=== PATIENT | male | born 1955 | race Caucasian/White ===

== ENCOUNTER 2017-10-22 09:24 | Outpatient (CLI) | payer MEDICARE, SELFPAY ==
[2017-10-22 11:34] LABS: CREATININE 0.91 mg/dL (0.70-1.30); Potassium 4.2 mmol/L (3.5-5.1)
[2017-10-22 12:59] LABS: Hemoglobin A1C 5.9 % (4.5-6.2)
== END 2017-10-22 09:44 ==
LOC: LBO 09:24 → LOS 10:33
PROVIDERS: PCP Family Medicine; Visit Provider Family Medicine
DX: E11.9 Type 2 diabetes mellitus without complications (principal); I10 Essential (primary) hypertension
CPT/HCPCS: 36415; 82565; 83036; 84132

== ENCOUNTER 2018-03-09 10:28 | Emergency (ER) | payer MEDICARE, SELFPAY ==
[2018-03-09 10:34] VITALS: BP 119/64; PULSE 61; RESP 14; TEMP 37.2; O2SAT 95
--- NOTE | 2018-03-09 11:49 | ED.GENADUL_ITS ---
Discharge Plan Disposition Patient Disposition: HOME Condition: Stable Discharge Details Chief Complaint: Sorethroat Clinical Impression: Strep pharyngitis Primary Care Provider: Raoul Akhtar ED Provider: Kimberlee Holliday Home Meds and New Rx's Prescriptions: New azithromycin [Zithromax] 500 mg tablet 500 mg PO DAILY 5 Days Qty: 5 RF: 0 Continued furosemide 20 mg tablet 20 mg PO QAM RF: 0 lorazepam 0.5 mg tablet 0.5 mg PO HS PRN RF: 0 atorvastatin 80 mg tablet 80 mg PO HS RF: 0 multivitamin [Daily Multi-Vitamin] 1 EACH tablet 1 ea PO DAILY RF: 0 aspirin [Aspirin Low-Strength] 81 MG tablet,chewable 81 mg PO NIGHTLY RF: 0 BIPAP RF: 0 OneTouch Ultra Test 1 EACH strip 1 ea Miscellaneous DAILY Qty: 100 RF: 4 lancets [OneTouch Delica Lancets] 1 EACH misc 1 ea Miscellaneous DAILY Qty: 100 RF: 4 clopidogrel [Plavix] 75 MG tablet 75 mg PO DAILY Qty: 90 RF: 4 acetaminophen 500 MG tablet 1,000 mg PO Q6H PRN RF: 0 glucosamine sulfate 500 MG capsule 500 mg PO DAILY RF: 0 folic acid 0.4 MG tablet 0.4 mg PO DAILY RF: 0 nystatin (bulk) 1 EACH powder 1 applic Topical BID PRNQty: 1 RF: 5 omega-3 fatty acids-fish oil [Fish Oil] 1 EACH capsule 1 ea PO DAILY RF: 0 nitroglycerin 0.4 MG tablet, sublingual 0.4 mg Sublingual PRN PRNRF: 0 Tumeric 1 cap PO DAILY RF: 0 lactulose 10 GM/15 ML solution 1 ea PO TID RF: 0 No Action spironolactone 100 mg tablet 50 mg PO DAILY RF: 0 lisinopril 10 mg tablet 10 mg PO DAILY Qty: 90 RF: 3 sertraline 100 mg tablet 150 mg PO DAILY Qty: 135 RF: 3 Discharge Instructions Instructions: Pharyngitis (ED) Additional Instructions: Take the antibiotics until finished. Drink plenty of fluids and get plenty of rest. Follow-up with your primary care doctor and cardiothoracic surgeon for reevaluation. Return immediately to the emergency department any worsening or new concerning symptoms. Discharge Data Discharge Date/Time-TO BE ENTERED AT DEPARTURE: 03/09/18 12:10 Discharge Physician: Kimberlee Holliday Medical Decision Making 63-year-old male with a history of aortic stenosis status post TAVR 1 year ago who presents with sore throat for the past 3 days. Also complains of cough with yellow sputum. Denies any known fever. Patient appears nontoxic and in no acute distress. Vitals within normal limits. Afebrile. Posterior pharynx erythematous but no exudates. No lymphadenopathy. Lungs clear to auscultation. No meningeal signs. No focal deficits. Rapid strep positive. Upon review of literature of valve replacement, plan for treatment is same with antibiotic treatment. Patient is allergic to penicillin. Will treat with zithromax. Patient states he can go directly to the pharmacy. Will give a prescription for Zithromax. Patient instructed to follow-up with his primary care doctor and his cardiothoracic surgeon at [facility] for reevaluation. He is instructed to return here at any time if worse. HPI General Mode of arrival: ambulatory . Date/Time Provider Initiated Documentation: 03/09/18 10:56 . Limitations to Documentation: no limitations . Information obtained by: patient . HPI Narrative: Patient is a 63-year-old male with a history of aortic stenosis status post TAVR 1 year ago at [facility] who presents with sore throat for the past 3 days. He also complains of productive cough with yellow sputum. He complains of intermittent chills and headache but denies any known fever. He denies ear pain, neck pain, chest pain, shortness of breath, abdominal pain. Related Data Home Medications Medication Instructions Recorded Confirmed aspirin [Aspirin Low-Strength] 81 mg PO NIGHTLY tab-cap 05/13/12 03/10/18 multivitamin [Daily Multi-Vitamin] 1 ea PO DAILY 05/13/12 03/10/18 OneTouch Ultra Test #100 strip 01/24/15 03/10/18 lancets [OneTouch Delica Lancets] #100 ea 01/24/15 03/10/18 omega-3 fatty acids-fish oil [Fish 1 ea PO DAILY 08/07/15 03/10/18 Oil] nitroglycerin 0.4 mg SUBLINGUAL PRN PRN 11/03/15 03/10/18 clopidogrel [Plavix] 75 mg PO DAILY #90 tab-cap 01/22/16 03/10/18 acetaminophen 1,000 mg PO Q6H PRN tab-cap 02/29/16 03/10/18 glucosamine sulfate 500 mg PO DAILY 02/29/16 03/10/18 Tumeric 1 cap PO DAILY 06/12/16 03/10/18 folic acid 0.4 mg PO DAILY tab-cap 11/08/16 03/10/18 lactulose 1 ea PO TID 11/09/16 03/10/18 nystatin (bulk) 1 applic TOPICAL BID PRN #1 bottle 08/31/17 03/10/18 atorvastatin 80 mg tablet 80 mg PO HS tab 10/18/17 03/10/18 lorazepam 0.5 mg tablet 0.5 mg PO HS PRN tab 10/18/17 03/10/18 furosemide 20 mg tablet 20 mg PO QAM tab 10/22/17 03/10/18 spironolactone 100 mg tablet 50 mg PO DAILY 10/22/17 03/10/18 azithromycin [Zithromax] 500 mg PO DAILY 5 Days #5 tab 03/09/18 03/10/18 lisinopril 10 mg tablet 10 mg PO DAILY #90 tab 03/10/18 03/10/18 sertraline 100 mg tablet 150 mg PO DAILY #135 tab 03/10/18 03/10/18 Previous Rx's Medication Instructions Recorded azithromycin [Zithromax] 500 mg PO DAILY 5 Days #5 tab 03/09/18 lisinopril 10 mg tablet 10 mg PO DAILY #90 tab 03/10/18 sertraline 100 mg tablet 150 mg PO DAILY #135 tab 03/10/18 Allergies Allergy/AdvReac Type Severity Reaction Status Date / Time Iodinated Contrast- Oral and Allergy Severe Swelling/Ed Unverified 03/10/18 08:08 IV Dye tiffanie shellfish derived Allergy Severe Swelling/Ed Unverified 03/10/18 08:08 tiffanie Penicillins Allergy Intermediate Hives Unverified 03/10/18 08:08 gabapentin AdvReac Mild URINARY SX Unverified 03/10/18 08:08 General Stated Complaint: Sorethroat SARAH: 4 Review of Systems Review of Systems All systems reviewed & are unremarkable except as noted in HPI and below Constitutional Reports as per HPI, Reports chills, Denies fever(s) and Reports headache(s) Eyes Denies blurry vision ENT Denies dizziness, Reports headache(s), Reports sore throat and Denies throat swelling Cardiovascular Denies chest pain and Denies dyspnea Respiratory Reports chest congestion, Reports cough and Denies dyspnea Gastrointestinal Denies abdominal pain, Denies diarrhea and Denies vomiting Genitourinary Denies hematuria and Denies dysuria Musculoskeletal Denies back pain and Denies numbness Integumentary/Breasts Denies lesions and Denies rash Neurologic Denies dizziness, Reports headache(s), Denies focal weakness and Denies numbness Allergic/Immunologic Denies throat swelling [facility] Medical History History of encephalitis (Acute) Hyperlipemia (Acute) NAFLD (nonalcoholic fatty liver disease) (Acute) Aortic stenosis (Chronic) Depression (Chronic) Diabetes (Chronic) HTN (hypertension) (Chronic) Myocardial infarction (Chronic) Obesity (Chronic) Obstructive sleep apnea (Chronic) Osteoarthritis (Chronic) Seizure disorder (Chronic) Surgical History History of carpal tunnel release (Acute) S/P TAVR (transcatheter aortic valve replacement) (Acute) History of coronary artery stent placement (Chronic) Social History Smoking/Tobacco Use Status: Never alcohol intake: current alcohol intake frequency: a few times a month substance use type: does not use Exam Const General: cooperative, healthy appearing and no acute distress HENMT Head: normal to inspection Ears: hearing grossly normal bilaterally and TM's normal bilaterally General nose exam: external nose normal Face and sinus: normal facial exam and sinuses nontender Mouth: oral mucosae normal Teeth and gingiva: dentition normal Throat: no peritonsillar masses (no tonsillar abscess) and other (Posterior pharyngeal erythema but without exudates. Uvula midline. ) Eyes General: appearance normal, both eyes and all related structures Pupils: PERRL EOM: EOM intact bilaterally Neck Neck: normal visual inspection and No submandibular swelling Lymphatic: no lymphadenopathy noted Chest Chest: normal inspection of the chest and no tenderness Resp Effort & Inspection: normal respiratory effort and able to speak in complete sentences Auscultation: clear to auscultation bilaterally Cardio Rate: regular rate Rhythm: regular rhythm Heart Sounds: murmur systolic (vibrating) GI Inspection: normal to inspection Palpation: soft, not firm, not rigid and nontender Auscultation: normal bowel sounds Male General Exam: Yes normal external exam Skin General skin exam: no rashes or lesions noted Neuro General: alert, awake and oriented x3 Cognition: normal cognition Speech: speech normal Motor: muscle tone normal throughout Sensory Exam: no sensory deficits noted Extrem General: normal to inspection, full ROM and no edema Psych Appearance: grossly normal Mental Status: mental status grossly normal Speech and Movement: speech and movement normal Affect: normal affect Course Vital Signs Temperature 99.0 F 03/09/18 10:34 Pulse 61 03/09/18 10:34 Respiratory Rate 14 03/09/18 10:34 Blood Pressure 119/64 03/09/18 10:34 Pulse Oximetry 95 03/09/18 10:34 Temperature 99.0 F 03/09/18 10:34 Temperature Source Temporal Artery Scan 03/09/18 10:34 Pulse 61 03/09/18 10:34 Respiratory Rate 14 03/09/18 10:34 Respiratory Effort Non-Labored 03/09/18 10:52 Blood Pressure 119/64 03/09/18 10:34 Blood Pressure Position Sitting 03/09/18 10:34 Pulse Oximetry 95 03/09/18 10:34 Oxygen Delivery Method Room Air 03/09/18 10:34 Oxygen Flow Rate 0 03/09/18 10:34 Pain Level 3 03/09/18 10:34 Lab/Test Results Lab/Test Results: POC Strep Test-HAROLDO(Rapid) Start: 03/09/18 11:13 Freq: Status: Active Protocol: Document 03/09/18 11:14 PD (Rec: 03/09/18 11:14 PD [id number]) Strep test-HAROLDO(Rapid)-POC POC-Strep test-HAROLDO (Rapid) Positive POC-Strep test-HAROLDO (Rapid) Positive
[2018-03-09 12:06] VITALS: BP 126/57; PULSE 57; RESP 18; TEMP 37; O2SAT 94
== END 2018-03-09 12:10 | disposition home or self-care (01) ==
PROVIDERS: Emergency Provider Physician Assistant; PCP Family Medicine
DX: J02.0 Streptococcal pharyngitis (principal); E11.9 Type 2 diabetes mellitus without complications; I10 Essential (primary) hypertension
CPT/HCPCS: 87880; 99283

== ENCOUNTER 2018-03-10 08:34 | Outpatient (CLI) | payer MEDICARE, SELFPAY ==
[2018-03-10 11:22] LABS: Abs Immature Grans 0.02 k/cumm (0.0-0.09); Absolute Eosinophil Count 0.09 k/cumm (0.0-0.7); Absolute Lymphocyte Count 0.61 k/cumm (1.2-3.4); Absolute Monocyte Count 0.65 k/cumm (0.11-0.7); Absolute Neutrophil Count 3.35 k/cumm (1.2-6.7); Eosinophils % 1.9; HCT 38.5 % (40.0-50.0); HGB 12.6 g/dL (13.5-17.5); Immature Grans % 0.4; Lymphocytes % 12.9; Mean Corp. HGB Concentration 32.7 g/dL (32.0-36.0); Mean Corpuscular Hemoglobin 29.8 pg (27.0-33.0); Mean Platelet Volume 11.9 fL (8.0-11.0); Monocytes % 13.8; RBC 4.23 m/cumm (4.50-6.00); RBC Distribution Width 15.3 % (11.8-14.1); White Blood Cell Count 4.72 k/cumm (4.4-10.8)
[2018-03-10 11:37] LABS: C-Reactive Protein 3.46 mg/dL (0.0-0.3)
[2018-03-10 11:41] LABS: Platelet Count 38 x1000/uL (130-400)
== END 2018-03-10 08:54 ==
PROVIDERS: PCP Family Medicine; Visit Provider Family Medicine
DX: I33.0 Acute and subacute infective endocarditis (principal)
CPT/HCPCS: 36415; 85025; 86140

== ENCOUNTER 2018-04-20 07:10 | Emergency (ER) | payer MEDICARE, SELFPAY ==
[2018-04-20 07:16] VITALS: BP 111/85; PULSE 51; RESP 16; TEMP 36.6; O2SAT 98
--- NOTE | 2018-04-20 07:59 | W.ED.GENAD ---
Discharge Plan Disposition Patient Disposition: OTHER Condition: Stable Discharge Details Chief Complaint: Cellulitis Clinical Impression: Thrombosed external hemorrhoid, Left before treatment completed Primary Care Provider: Raoul Akhtar ED Provider: Kimberlee Holliday Home Meds and New Rx's Prescriptions: Continued furosemide 20 mg tablet 20 mg PO QAM RF: 0 spironolactone 100 mg tablet 50 mg PO DAILY RF: 0 lorazepam 0.5 mg tablet 0.5 mg PO HS PRN RF: 0 atorvastatin 80 mg tablet 80 mg PO HS RF: 0 lisinopril 10 mg tablet 10 mg PO DAILY Qty: 90 RF: 3 multivitamin [Daily Multi-Vitamin] 1 EACH tablet 1 ea PO DAILY RF: 0 aspirin [Aspirin Low-Strength] 81 MG tablet,chewable 81 mg PO NIGHTLY RF: 0 BIPAP RF: 0 OneTouch Ultra Test 1 EACH strip 1 ea Miscellaneous DAILY Qty: 100 RF: 4 lancets [OneTouch Delica Lancets] 1 EACH misc 1 ea Miscellaneous DAILY Qty: 100 RF: 4 clopidogrel [Plavix] 75 MG tablet 75 mg PO DAILY Qty: 90 RF: 4 acetaminophen 500 MG tablet 1,000 mg PO Q6H PRN RF: 0 glucosamine sulfate 500 MG capsule 500 mg PO DAILY RF: 0 folic acid 0.4 MG tablet 0.4 mg PO DAILY RF: 0 nystatin (bulk) 1 EACH powder 1 applic Topical BID PRNQty: 1 RF: 5 sertraline 100 mg tablet 150 mg PO DAILY Qty: 135 RF: 3 omega-3 fatty acids-fish oil [Fish Oil] 1 EACH capsule 1 ea PO DAILY RF: 0 nitroglycerin 0.4 MG tablet, sublingual 0.4 mg Sublingual PRN PRNRF: 0 Tumeric 1 cap PO DAILY RF: 0 lactulose 10 GM/15 ML solution 1 ea PO TID RF: 0 Discharge Data Discharge Date/Time-TO BE ENTERED AT DEPARTURE: 04/20/18 08:24 Medical Decision Making 63-year-old male with a history of seizure, obesity, UT, DM, NAFLD, coronary stent, TAVR who presents w/ right several months, worse over the past few days with straining and constipation. Denies fever, nausea, vomiting, abdominal pain, bloody stools or change in appetite. Vitals within normal limits. Afebrile. Patient appears nontoxic. Abdomen is soft and nontender. He has 1 thrombosed hemorrhoid on exam. Patient is requesting hemorrhoidectomy. Will call surgery for recommendations. Likely will send home with colace, lidocaine jelly, and refer for surgical evaluation. 0830 --patient walked out of room and left before treatment complete stating You're not a real doctor, you're not educated, what good are you?, why dont' you learn to do this {procedure of hemorrhoid excision} so you can be a real doctor instead of pushing me off to someone else to do your work. I discussed with patient that I have called surgery to arrange for a follow-up appointment with him and can send him home with Colace and lidocaine jelly. I discussed that I do not perform hemorrhoid excisions in the emergency department, and even more so considering patient's history of TAVR, diabetes, liver disease, UT, cardiac stent, this procedure would be best performed under the supervision of a general surgeon. Pt stated someone will hear about this and left. Case was discussed with nursing curing supervisor and care/risk management. Case was also discussed with surgery Dr. Willson who was given patient's information to contact him to arrange for a follow-up appointment. HPI General Mode of arrival: ambulatory. Date/Time Provider Initiated Documentation: 04/20/18 07:12. Limitations to Documentation: no limitations. Information obtained by: patient. HPI Narrative: Patient is a 63-year-old male with a history of diabetes, seizures, NAFLD, UT, cardiac stent, TAVR who presents to the ED with a complaint of hemorrhoids for the past few months, worse over the past couple days. He states he has been straining with his bowel movements lately due to constipation. Patient states he cannot drink much water due to his chronic liver disease. States he has been using a liquid stool softener 3 times daily for the past 2 years. He denies any other stool softeners. He states he has been using baths without relief. He admits to rectal pain but denies any fever, nausea, vomiting, abdominal pain or bloody stools. Related Data Home Medications Medication Instructions Recorded Confirmed aspirin [Aspirin Low-Strength] 81 mg PO NIGHTLY tab-cap 05/13/12 04/20/18 multivitamin [Daily Multi-Vitamin] 1 ea PO DAILY 05/13/12 04/20/18 OneTouch Ultra Test #100 strip 01/24/15 04/20/18 lancets [OneTouch Delica Lancets] #100 ea 01/24/15 04/20/18 omega-3 fatty acids-fish oil [Fish 1 ea PO DAILY 08/07/15 04/20/18 Oil] nitroglycerin 0.4 mg SUBLINGUAL PRN PRN 11/03/15 04/20/18 clopidogrel [Plavix] 75 mg PO DAILY #90 tab-cap 01/22/16 04/20/18 acetaminophen 1,000 mg PO Q6H PRN tab-cap 02/29/16 04/20/18 glucosamine sulfate 500 mg PO DAILY 02/29/16 04/20/18 Tumeric 1 cap PO DAILY 06/12/16 04/20/18 folic acid 0.4 mg PO DAILY tab-cap 11/08/16 04/20/18 lactulose 1 ea PO TID 11/09/16 04/20/18 nystatin (bulk) 1 applic TOPICAL BID PRN #1 bottle 08/31/17 04/20/18 atorvastatin 80 mg tablet 80 mg PO HS tab 10/18/17 04/20/18 lorazepam 0.5 mg tablet 0.5 mg PO HS PRN tab 10/18/17 04/20/18 furosemide 20 mg tablet 20 mg PO QAM tab 10/22/17 04/20/18 spironolactone 100 mg tablet 50 mg PO DAILY 10/22/17 04/20/18 lisinopril 10 mg tablet 10 mg PO DAILY #90 tab 03/10/18 04/20/18 sertraline 100 mg tablet 150 mg PO DAILY #135 tab 03/10/18 04/20/18 Previous Rx's Medication Instructions Recorded lisinopril 10 mg tablet 10 mg PO DAILY #90 tab 03/10/18 sertraline 100 mg tablet 150 mg PO DAILY #135 tab 03/10/18 Allergies Allergy/AdvReac Type Severity Reaction Status Date / Time Iodinated Contrast- Oral and Allergy Severe Swelling/Ed Verified 04/20/18 15:21 IV Dye tiffanie shellfish derived Allergy Severe Swelling/Ed Verified 04/20/18 15:21 tiffanie Penicillins Allergy Intermediate Hives Verified 04/20/18 15:21 gabapentin AdvReac Mild URINARY SX Verified 04/20/18 15:21 General Stated Complaint: Cellulitis SARAH: 4 Review of Systems Review of Systems All systems reviewed & are unremarkable except as noted in HPI and below Constitutional Reports as per HPI, Denies chills and Denies fever(s) Eyes Denies blurry vision ENT Denies dizziness, Denies sore throat and Denies throat swelling Cardiovascular Denies chest pain and Denies dyspnea Respiratory Denies cough and Denies dyspnea Gastrointestinal Denies abdominal pain, Denies diarrhea, Denies vomiting and Reports other (rectal pain, hemorrhoids) Genitourinary Denies hematuria and Denies dysuria Musculoskeletal Denies back pain and Denies numbness Integumentary/Breasts Denies lesions and Denies rash Neurologic Denies dizziness, Denies focal weakness and Denies numbness Allergic/Immunologic Denies throat swelling [facility] Social History Smoking and Tabacco status: Never alcohol intake: current alcohol intake frequency: a few times a month substance use type: does not use Exam Const General: cooperative, healthy appearing and no acute distress HENMT Head: normal to inspection Face and sinus: normal facial exam Eyes General: appearance normal, both eyes and all related structures EOM: EOM intact bilaterally Neck Neck: normal visual inspection and No submandibular swelling Lymphatic: no lymphadenopathy noted Chest Chest: normal inspection of the chest and no tenderness Resp Effort & Inspection: normal respiratory effort and able to speak in complete sentences Auscultation: clear to auscultation bilaterally Cardio Rate: regular rate Rhythm: regular rhythm GI Inspection: normal to inspection and obesity Palpation: soft, not firm, not rigid and nontender Auscultation: normal bowel sounds Rectal Exam: hemorrhoids (2.5x2.5cm thrombosed external hemorrhoid) Male General Exam: Yes normal external exam Skin General skin exam: no rashes or lesions noted Neuro General: alert, awake and oriented x3 Cognition: normal cognition Speech: speech normal Motor: muscle tone normal throughout Sensory Exam: no sensory deficits noted Extrem General: normal to inspection, full ROM, normal capillary refill, no calf tenderness bilaterally and no edema Psych Appearance: grossly normal Mental Status: mental status grossly normal Speech and Movement: speech and movement normal Affect: normal affect Course Vital Signs Temperature 97.9 F 04/20/18 07:16 Pulse 51 L 04/20/18 07:16 Respiratory Rate 16 04/20/18 07:16 Blood Pressure 111/85 04/20/18 07:16 Pulse Oximetry 98 04/20/18 07:16 Temperature 97.9 F 04/20/18 07:16 Temperature Source Temporal Artery Scan 04/20/18 07:16 Pulse 51 L 04/20/18 07:16 Respiratory Rate 16 04/20/18 07:16 Respiratory Effort Non-Labored 04/20/18 07:20 Blood Pressure 111/85 04/20/18 07:16 Blood Pressure Position Sitting 04/20/18 07:16 Pulse Oximetry 98 04/20/18 07:16 Oxygen Delivery Method Room Air 04/20/18 07:16 Oxygen Flow Rate 0 04/20/18 07:16 Pain Level 10 04/20/18 07:16
--- NOTE | 2018-04-20 08:04 | ED.GENADUL_ITS ---
Discharge Plan Disposition Patient Disposition: OTHER Condition: Stable Discharge Details Chief Complaint: Cellulitis Clinical Impression: Thrombosed external hemorrhoid, Left before treatment completed Primary Care Provider: Raoul Akhtar ED Provider: Kimberlee Holliday Home Meds and New Rx's Prescriptions: Continued furosemide 20 mg tablet 20 mg PO QAM RF: 0 spironolactone 100 mg tablet 50 mg PO DAILY RF: 0 lorazepam 0.5 mg tablet 0.5 mg PO HS PRN RF: 0 atorvastatin 80 mg tablet 80 mg PO HS RF: 0 lisinopril 10 mg tablet 10 mg PO DAILY Qty: 90 RF: 3 multivitamin [Daily Multi-Vitamin] 1 EACH tablet 1 ea PO DAILY RF: 0 aspirin [Aspirin Low-Strength] 81 MG tablet,chewable 81 mg PO NIGHTLY RF: 0 BIPAP RF: 0 OneTouch Ultra Test 1 EACH strip 1 ea Miscellaneous DAILY Qty: 100 RF: 4 lancets [OneTouch Delica Lancets] 1 EACH misc 1 ea Miscellaneous DAILY Qty: 100 RF: 4 clopidogrel [Plavix] 75 MG tablet 75 mg PO DAILY Qty: 90 RF: 4 acetaminophen 500 MG tablet 1,000 mg PO Q6H PRN RF: 0 glucosamine sulfate 500 MG capsule 500 mg PO DAILY RF: 0 folic acid 0.4 MG tablet 0.4 mg PO DAILY RF: 0 nystatin (bulk) 1 EACH powder 1 applic Topical BID PRNQty: 1 RF: 5 sertraline 100 mg tablet 150 mg PO DAILY Qty: 135 RF: 3 omega-3 fatty acids-fish oil [Fish Oil] 1 EACH capsule 1 ea PO DAILY RF: 0 nitroglycerin 0.4 MG tablet, sublingual 0.4 mg Sublingual PRN PRNRF: 0 Tumeric 1 cap PO DAILY RF: 0 lactulose 10 GM/15 ML solution 1 ea PO TID RF: 0 Discharge Data Discharge Date/Time-TO BE ENTERED AT DEPARTURE: 04/20/18 08:24 Medical Decision Making 63-year-old male with a history of seizure, obesity, OH, DM, NAFLD, coronary stent, TAVR who presents w/ right several months, worse over the past few days with straining and constipation. Denies fever, nausea, vomiting, abdominal pain, bloody stools or change in appetite. Vitals within normal limits. Afebrile. Patient appears nontoxic. Abdomen is soft and nontender. He has 1 thrombosed hemorrhoid on exam. Patient is requesting hemorrhoidectomy. Will call surgery for recommendations. Likely will send home with colace, lidocaine jelly, and refer for surgical evaluation. 0830 --patient walked out of room and left before treatment complete stating You're not a real doctor, you're not educated, what good are you?, why dont' you learn to do this {procedure of hemorrhoid excision} so you can be a real doctor instead of pushing me off to someone else to do your work. I discussed with patient that I have called surgery to arrange for a follow-up appointment with him and can send him home with Colace and lidocaine jelly. I discussed that I do not perform hemorrhoid excisions in the emergency department, and even more so considering patient's history of TAVR, diabetes, liver disease, OH, cardiac stent, this procedure would be best performed under the supervision of a general surgeon. Pt stated someone will hear about this and left. Case was discussed with nursing pattern grader supervisor and care/risk management. Case was also discussed with surgery Dr. Willson who was given patient's information to contact him to arrange for a follow-up appointment. HPI General Mode of arrival: ambulatory . Date/Time Provider Initiated Documentation: 04/20/18 07:12 . Limitations to Documentation: no limitations . Information obtained by: patient . HPI Narrative: Patient is a 63-year-old male with a history of diabetes, seizures, NAFLD, OH, cardiac stent, TAVR who presents to the ED with a complaint of hemorrhoids for the past few months, worse over the past couple days. He states he has been straining with his bowel movements lately due to constipation. Patient states he cannot drink much water due to his chronic liver disease. States he has been using a liquid stool softener 3 times daily for the past 2 years. He denies any other stool softeners. He states he has been using baths without relief. He admits to rectal pain but denies any fever, nausea, vomiting, abdominal pain or bloody stools. Related Data Home Medications Medication Instructions Recorded Confirmed aspirin [Aspirin Low-Strength] 81 mg PO NIGHTLY tab-cap 05/13/12 04/20/18 multivitamin [Daily Multi-Vitamin] 1 ea PO DAILY 05/13/12 04/20/18 OneTouch Ultra Test #100 strip 01/24/15 04/20/18 lancets [OneTouch Delica Lancets] #100 ea 01/24/15 04/20/18 omega-3 fatty acids-fish oil [Fish 1 ea PO DAILY 08/07/15 04/20/18 Oil] nitroglycerin 0.4 mg SUBLINGUAL PRN PRN 11/03/15 04/20/18 clopidogrel [Plavix] 75 mg PO DAILY #90 tab-cap 01/22/16 04/20/18 acetaminophen 1,000 mg PO Q6H PRN tab-cap 02/29/16 04/20/18 glucosamine sulfate 500 mg PO DAILY 02/29/16 04/20/18 Tumeric 1 cap PO DAILY 06/12/16 04/20/18 folic acid 0.4 mg PO DAILY tab-cap 11/08/16 04/20/18 lactulose 1 ea PO TID 11/09/16 04/20/18 nystatin (bulk) 1 applic TOPICAL BID PRN #1 bottle 08/31/17 04/20/18 atorvastatin 80 mg tablet 80 mg PO HS tab 10/18/17 04/20/18 lorazepam 0.5 mg tablet 0.5 mg PO HS PRN tab 10/18/17 04/20/18 furosemide 20 mg tablet 20 mg PO QAM tab 10/22/17 04/20/18 spironolactone 100 mg tablet 50 mg PO DAILY 10/22/17 04/20/18 lisinopril 10 mg tablet 10 mg PO DAILY #90 tab 03/10/18 04/20/18 sertraline 100 mg tablet 150 mg PO DAILY #135 tab 03/10/18 04/20/18 Previous Rx's Medication Instructions Recorded lisinopril 10 mg tablet 10 mg PO DAILY #90 tab 03/10/18 sertraline 100 mg tablet 150 mg PO DAILY #135 tab 03/10/18 Allergies Allergy/AdvReac Type Severity Reaction Status Date / Time Iodinated Contrast- Oral and Allergy Severe Swelling/Ed Verified 04/20/18 15:21 IV Dye tiffanie shellfish derived Allergy Severe Swelling/Ed Verified 04/20/18 15:21 tiffanie Penicillins Allergy Intermediate Hives Verified 04/20/18 15:21 gabapentin AdvReac Mild URINARY SX Verified 04/20/18 15:21 General Stated Complaint: Cellulitis SARAH: 4 Review of Systems Review of Systems All systems reviewed & are unremarkable except as noted in HPI and below Constitutional Reports as per HPI, Denies chills and Denies fever(s) Eyes Denies blurry vision ENT Denies dizziness, Denies sore throat and Denies throat swelling Cardiovascular Denies chest pain and Denies dyspnea Respiratory Denies cough and Denies dyspnea Gastrointestinal Denies abdominal pain, Denies diarrhea, Denies vomiting and Reports other (rectal pain, hemorrhoids) Genitourinary Denies hematuria and Denies dysuria Musculoskeletal Denies back pain and Denies numbness Integumentary/Breasts Denies lesions and Denies rash Neurologic Denies dizziness, Denies focal weakness and Denies numbness Allergic/Immunologic Denies throat swelling [facility] Social History Smoking and Tabacco status: Never alcohol intake: current alcohol intake frequency: a few times a month substance use type: does not use Exam Const General: cooperative, healthy appearing and no acute distress HENMT Head: normal to inspection Face and sinus: normal facial exam Eyes General: appearance normal, both eyes and all related structures EOM: EOM intact bilaterally Neck Neck: normal visual inspection and No submandibular swelling Lymphatic: no lymphadenopathy noted Chest Chest: normal inspection of the chest and no tenderness Resp Effort & Inspection: normal respiratory effort and able to speak in complete sentences Auscultation: clear to auscultation bilaterally Cardio Rate: regular rate Rhythm: regular rhythm GI Inspection: normal to inspection and obesity Palpation: soft, not firm, not rigid and nontender Auscultation: normal bowel sounds Rectal Exam: hemorrhoids (2.5x2.5cm thrombosed external hemorrhoid) Male General Exam: Yes normal external exam Skin General skin exam: no rashes or lesions noted Neuro General: alert, awake and oriented x3 Cognition: normal cognition Speech: speech normal Motor: muscle tone normal throughout Sensory Exam: no sensory deficits noted Extrem General: normal to inspection, full ROM, normal capillary refill, no calf tenderness bilaterally and no edema Psych Appearance: grossly normal Mental Status: mental status grossly normal Speech and Movement: speech and movement normal Affect: normal affect Course Vital Signs Temperature 97.9 F 04/20/18 07:16 Pulse 51 L 04/20/18 07:16 Respiratory Rate 16 04/20/18 07:16 Blood Pressure 111/85 04/20/18 07:16 Pulse Oximetry 98 04/20/18 07:16 Temperature 97.9 F 04/20/18 07:16 Temperature Source Temporal Artery Scan 04/20/18 07:16 Pulse 51 L 04/20/18 07:16 Respiratory Rate 16 04/20/18 07:16 Respiratory Effort Non-Labored 04/20/18 07:20 Blood Pressure 111/85 04/20/18 07:16 Blood Pressure Position Sitting 04/20/18 07:16 Pulse Oximetry 98 04/20/18 07:16 Oxygen Delivery Method Room Air 04/20/18 07:16 Oxygen Flow Rate 0 04/20/18 07:16 Pain Level 10 04/20/18 07:16
--- NOTE | 2018-04-20 14:26 | PDOC.ERCMPRO ---
Care Management Progress Note 04/20-Dr. Holliday requested assistance with a surgical f/u for hemorrhoids. Mir eloped from the ED today as his expectation was the ED provider was going to remove the hemorrhoid. Please see provider note. Referral faxed to [facility] this afternoon. [facility] faxed back that patient has an appt at 3:00 today.
--- NOTE | 2018-04-20 14:27 | CMPROGNOTE_ITS ---
Care Management Progress Note 04/20-Dr. Holliday requested assistance with a surgical f/u for hemorrhoids. Mir eloped from the ED today as his expectation was the ED provider was going to remove the hemorrhoid. Please see provider note. Referral faxed to [facility] this afternoon. [facility] faxed back that patient has an appt at 3:00 today.
== END 2018-04-20 08:24 | disposition other institution (70) ==
LOC: ER 08:17
PROVIDERS: Emergency Provider Physician Assistant; PCP Family Medicine
DX: K64.5 Perianal venous thrombosis (principal); R45.1 Restlessness and agitation; Z95.2 Presence of prosthetic heart valve; E11.9 Type 2 diabetes mellitus without complications; I10 Essential (primary) hypertension; Z53.29 Procedure and treatment not carried out because of patient's decision for other reasons
CPT/HCPCS: 99213; 99283

== ENCOUNTER 2018-04-21 08:05 | Day surgery (SDC) | payer MEDICARE, SELFPAY ==
[2018-04-21 08:52] VITALS: BP 128/67; PULSE 53; RESP 16; TEMP 37; O2SAT 94
[2018-04-21] MEDS: Lactated Ringers 1,000 ML 80 ML IV (09:07)
[2018-04-21] MEDS: Gelatin SPONGE 12-7 MM PKT 1 EACH TP (09:59)
[2018-04-21] MEDS: Bupivacaine LIPOSOME/PF 133 MG/10 ML VIAL IJ (09:59)
[2018-04-21 10:45] VITALS: BP 110/43; PULSE 52; RESP 16; TEMP 36.6; O2SAT 97
--- NOTE | 2018-04-21 10:51 | W.PM.DSUDISC ---
Discharge Plan Disposition Patient Disposition: HOME Condition: Good Discharge Details Reason For Visit: HEMORRHOID Attending Provider: Jenny Cedillo Primary Care Provider: Raoul Akhtar Home Meds and New Rx's Prescriptions: New ibuprofen 800 mg tablet 800 mg PO TID PRN (Reason: pain) Qty: 60 RF: 8 tramadol [Ultram] 50 mg tablet 50 mg PO Q4H PRN (Reason: pain) Qty: 14 RF: 0 dibucaine 1 % ointment 1 applic TP QID Qty: 30 RF: 6 Continued furosemide 20 mg tablet 20 mg PO QAM RF: 0 spironolactone 100 mg tablet 50 mg PO DAILY RF: 0 lorazepam 0.5 mg tablet 0.5 mg PO HS PRN RF: 0 atorvastatin 80 mg tablet 80 mg PO HS RF: 0 lisinopril 10 mg tablet 10 mg PO DAILY Qty: 90 RF: 3 multivitamin [Daily Multi-Vitamin] 1 EACH tablet 1 ea PO DAILY RF: 0 aspirin [Aspirin Low-Strength] 81 MG tablet,chewable 81 mg PO NIGHTLY RF: 0 BIPAP RF: 0 OneTouch Ultra Test 1 EACH strip 1 ea Miscellaneous DAILY Qty: 100 RF: 4 lancets [OneTouch Delica Lancets] 1 EACH misc 1 ea Miscellaneous DAILY Qty: 100 RF: 4 clopidogrel [Plavix] 75 MG tablet 75 mg PO DAILY Qty: 90 RF: 4 acetaminophen 500 MG tablet 1,000 mg PO Q6H PRN RF: 0 glucosamine sulfate 500 MG capsule 500 mg PO DAILY RF: 0 folic acid 0.4 MG tablet 0.4 mg PO DAILY RF: 0 nystatin (bulk) 1 EACH powder 1 applic Topical BID PRNQty: 1 RF: 5 sertraline 100 mg tablet 150 mg PO DAILY Qty: 135 RF: 3 omega-3 fatty acids-fish oil [Fish Oil] 1 EACH capsule 1 ea PO DAILY RF: 0 nitroglycerin 0.4 MG tablet, sublingual 0.4 mg Sublingual PRN PRNRF: 0 Tumeric 1 cap PO DAILY RF: 0 lactulose 10 GM/15 ML solution 1 ea PO TID RF: 0 milk thistle 500 mg Capsule 500 mg PO DAILY RF: 0 sertraline 100 mg Tablet 1.5 tab PO DAILY RF: 0 Discharge Instructions Additional Instructions: Home Care Instructions after Rectal Surgery Pain/muscle spasms are normal after surgery. Use the prescribed pain medications, valium and topical creams. Do not use any other creams unless specifically prescribed for you. It takes oral pain meds an hour to take effect. Do not get behind on your pain meds. You can alternate with NSAID?s (ibuprofen 400-600mg) every 8 hours. Take with food; do not take if you have ulcers or sensitivity to aspirin. Constipation occurs with the use of narcotic pain medications. The first bowel movement after surgery will be painful. Do not let yourself get constipated. Stay on a stool softener while you are on the narcotics. It is recommended that you use a fiber supplement (Metamucil, Citrucel) daily (1 tablespoon in 8 oz of water). If you do not have a bowel movement daily, use Milk of Magnesia or MiraLAX. It is normal to have bleeding or drainage after rectal surgery; especially when you move your bowels. Use a sanitary napkin to collect the discharge. If you are passing large clots or having to change the pad more than every 4 hours, call the clinic or go to the ER. You may experience spasms in the rectal muscles. This is normal after surgery and last for about two weeks. They can become more intense with bowel movements. You can use the valium as a muscle relaxant (do not take at the same time as the pain medications). You can also try sitz bathes (sitting in a bath tub of PLAIN lukewarm water; soap can add to rectal irritation). Or you can try ice packs. You will have to see what works best for you. It is ok to shower. Avoid soap on the surgical area. Use a pillow to sit on. Follow a mild bland diet. Avoid alcohol, spicy food, citrus, and tomatoes. Avoid strenuous activity (running, jogging, and power walking, swimming, weight lifting) for two weeks. No lifting over 5 pounds for 2 [address] if taking pain medications, or cannot turn or twist your body without hesitation. You can return to work when you are no longer taking the pain meds, can sit comfortably for 8 hours or when the weight restrictions are lifted. Urinary retention is common. Sit in a warm tub to try to relax the bladder. If you are unable to urinate after 8 hours, call the office or go to the ER. If you have packing in place, follow the directions for doing the dressing changes. If you have stitches in place, they will fall out in about 7-10 days. They may develop an ?odor?. -Has rectal packing in place. Will pass w/ BM. Activity:: watch for constipation. take magnesium citrate prn Remove Dressings/Wound Care:: 24 hours Shower/Bathe:: 24 hours Diet:: As Tolerated
--- NOTE | 2018-04-21 13:12 | W.PM.OP ---
Date of service: 04/21/18 Time of Service: 13:12 Operative Note DATE OF PROCEDURE: 04/21/18 PRE-OP DIAGNOSIS: thrombosed ext. hem POST-OP DIAGNOSIS: same PROCEDURE: I & D adn excision thrombosed hemorrhoid SURGEON: Jenny Cedillo ANESTHESIA: GETA ESTIMATED BLOOD LOSS: 5 PATHOLOGY: none sent COMPLICATIONS: None Patient was transported to: same day Patient's condition: stable Implants: none Indications: pain Findings: lg amount of clot Procedure Description: dictated
--- NOTE | 2018-04-21 22:14 | ROE_ITS ---
DATE OF PROCEDURE: April 21, 2018 PREOPERATIVE DIAGNOSIS: Thrombosed external hemorrhoid, history of rectal varices and cirrhosis, thrombocytopenia, mechanical heart valve and endocarditis. POSTOPERATIVE DIAGNOSIS: Same. PROCEDURE: Excision of external hemorroid SURGEON: Jenny Cedillo D.O. ANESTHESIA: Local and general. ESTIMATED BLOOD LOSS: 5 cc COMPLICATIONS: The patient tolerated the procedure well without complications. HISTORY: Mr. Arias is a 53-year-old male seen at the request of his PCP regarding a thrombosed hemorrhoid and is here today for excision. The patient has a history of cirrhosis, esophageal varices, and hemorrhoids. He has significant thrombocytopenia with platelets of 38 and is on Plavix so he is being taken to the Operating Room for incision and drainage. He has a hx of endocarditis and is received IV abx preOp. Informed consent was obtained explaining the risks and benefits of the procedure including, but not limited to, bleeding, infection, pneumonia, blood clots, complications from anesthesia, recurrence, bleeding, and other unforetold complications. PROCEDURE: The patient was brought to operative room suite and anesthesia was administered per the Department of Anesthesia. The patient was placed in the left lateral decubitus position. The patient was prepped and draped in the usual sterile fashion solution. A time-out was performed. Twenty cc's of 1% lidocaine and 0.25% Marcaine with epinephrine was used for local anesthetization. The hemorrhoid was then excised sharply. There was a significant amount of clot that was removed. Pressure was held. We were nowhere near the sphincter. The incision was closed with #3-0 running Vicryl. Pressure was held. Long-term Depo lidocaine was placed. Gelfoam was placed into the incision as rectal packing to aid in homeostasis. A sterile dressing was applied. The patient tolerated the procedure well without complication. He was transferred to Recovery in a stable condition. He had no problems with any bleeding. The patient was given instructions in wound care, activity, and warning signs. He was given a prescription for dibucaine ointment and Ultram and he can use ibuprofen to aid in pain control and warm sitz baths. He will follow up in clinic in two weeks. He was given instructions in PostOp rectal care. Thank you for allowing me to participate in the care of this patient. cc: Raoul Akhtar M.D.
== END 2018-04-21 11:25 | disposition home or self-care (01) ==
PROVIDERS: PCP Family Medicine; Visit Provider Surgery
PROC: (CPT 46320; principal; 2018-04-21 09:15)
DX: K64.5 Perianal venous thrombosis (principal); K74.60 Unspecified cirrhosis of liver; D69.6 Thrombocytopenia, unspecified; Z95.2 Presence of prosthetic heart valve; K75.81 Nonalcoholic steatohepatitis (NASH); E11.9 Type 2 diabetes mellitus without complications
CPT/HCPCS: 46320

== ENCOUNTER 2018-04-25 13:31 | Emergency (ER) | payer MEDICARE, SELFPAY ==
[2018-04-25] VITALS (16 sets, daily range): BP systolic 99–129; BP diastolic 45–67; PULSE 46–56; RESP 11–160; TEMP 36.3; O2SAT 95–100
--- NOTE | 2018-04-25 14:15 | W.ED.GENAD ---
Discharge Plan Disposition Patient Disposition: HOME Condition: Improving Discharge Details Chief Complaint: GenMedical Clinical Impression: Ascites Primary Care Provider: Raoul Akhtar ED Provider: Tadeo Hendricks Home Meds and New Rx's Prescriptions: Continued furosemide 20 mg tablet 20 mg PO QAM RF: 0 spironolactone 100 mg tablet 50 mg PO DAILY RF: 0 lorazepam 0.5 mg tablet 0.5 mg PO HS PRN RF: 0 lisinopril 10 mg tablet 10 mg PO DAILY Qty: 90 RF: 3 multivitamin [Daily Multi-Vitamin] 1 EACH tablet 1 ea PO DAILY RF: 0 aspirin [Aspirin Low-Strength] 81 MG tablet,chewable 81 mg PO NIGHTLY RF: 0 folic acid 0.4 MG tablet 0.4 mg PO DAILY RF: 0 nystatin (bulk) 1 EACH powder 1 applic Topical BID PRNQty: 1 RF: 5 sertraline 100 mg tablet 150 mg PO DAILY Qty: 135 RF: 3 nitroglycerin 0.4 MG tablet, sublingual 0.4 mg Sublingual PRN PRNRF: 0 Tumeric 1 cap PO DAILY RF: 0 lactulose 10 GM/15 ML solution 1 ea PO TID RF: 0 milk thistle 500 mg Capsule 500 mg PO DAILY RF: 0 ibuprofen 800 mg tablet 800 mg PO TID PRN (Reason: pain) Qty: 60 RF: 8 dibucaine 1 % ointment 1 applic TP QID Qty: 30 RF: 6 Discharge Instructions Instructions: Ascites (ED) Additional Instructions: Please follow-up with your gastrointestinal specialist and primary care physician on Friday. Return to the ER for any worsening or new concerning symptoms. Referrals: Raoul Akhtar [Primary Care Provider] - Medical Decision Making 14:20 --63-year-old male with history of JIMENEZ with liver cirrhosis, esophageal varices, rectal varices, thrombocytopenia, here with worsening ascites over the past 2 weeks. Patient has associated wheezing and he does have some rales on exam. He is saturating well in no respiratory distress. I called and spoke with Dr. Coughlin, general surgeon environmental technical officer, she does not feel comfortable performing paracentesis given his significant comorbidities and recommends transfer to tertiary care facility. -- I [place] [facility] [place] no beds available for transfer. My transfer request was refused. -- I spoke with [facility] transfer center and hospitalist - no beds available for transfer. My transfer request was refused. -- I spoke again with Dr. Willson who agrees to perform pericentesis utilizing US guidance here at bedside as long as patient provides informed consent given risks. She will speak with patient. --Paracentesis performed by Dr. Coughlin who removed 6 L of fluid. Patient was monitored in the emergency department post procedurally and remained hemodynamically stable. He was able to ambulate without any difficulty. Strict instructions were provided the patient to follow-up with his gastrointestinal specialist this week. Disposition decision was made weighing the risks and benefits of hospitalization versus outpatient treatment, the risk for further decompensation, and the patient's wishes. The patient was stable and requested discharge. Prior to discharge, my usual and customary return precautions were reviewed with the patient - this included follow-up instructions and reason to return to the emergency department if condition worsens, does not improve as expected, or other new concerns arise. HPI General Mode of arrival: ambulatory. Date/Time Provider Initiated Documentation: 04/25/18 13:44. Limitations to Documentation: no limitations. Information obtained by: patient. HPI Narrative: 63-year-old male with multiple medical problems including history of liver cirrhosis secondary JIMENEZ, cytopenia, bacterial endocarditis, aortic valve replacement, esophageal and rectal varices, recent hemorrhoids requiring hemorrhoidectomy, here with chief complaint of abdominal distention. Patient notes that over the past 2 weeks he has had progressive worsening swelling of his abdomen. Swelling is now severe. No modifiers. He has associated jaundice as well as associated mild intermittent wheeze. No vomiting. No fever. Related Data Home Medications Medication Instructions Recorded Confirmed aspirin [Aspirin Low-Strength] 81 mg PO NIGHTLY tab-cap 05/13/12 04/21/18 multivitamin [Daily Multi-Vitamin] 1 ea PO DAILY 05/13/12 04/21/18 nitroglycerin 0.4 mg SUBLINGUAL PRN PRN 11/03/15 04/21/18 Tumeric 1 cap PO DAILY 06/12/16 04/25/18 folic acid 0.4 mg PO DAILY tab-cap 11/08/16 04/21/18 lactulose 1 ea PO TID 11/09/16 04/21/18 nystatin (bulk) 1 applic TOPICAL BID PRN #1 bottle 08/31/17 04/21/18 lorazepam 0.5 mg tablet 0.5 mg PO HS PRN tab 10/18/17 04/21/18 furosemide 20 mg tablet 20 mg PO QAM tab 10/22/17 04/21/18 spironolactone 100 mg tablet 50 mg PO DAILY 10/22/17 04/21/18 lisinopril 10 mg tablet 10 mg PO DAILY #90 tab 03/10/18 04/21/18 sertraline 100 mg tablet 150 mg PO DAILY #135 tab 03/10/18 04/21/18 dibucaine 1 applic TP QID #30 gm 04/21/18 ibuprofen 800 mg PO TID PRN #60 tab 04/21/18 milk thistle 500 mg PO DAILY 04/21/18 04/21/18 Previous Rx's Medication Instructions Recorded lisinopril 10 mg tablet 10 mg PO DAILY #90 tab 03/10/18 sertraline 100 mg tablet 150 mg PO DAILY #135 tab 03/10/18 dibucaine 1 applic TP QID #30 gm 04/21/18 ibuprofen 800 mg PO TID PRN #60 tab 04/21/18 Allergies Allergy/AdvReac Type Severity Reaction Status Date / Time Iodinated Contrast- Oral and Allergy Severe Swelling/Ed Verified 04/25/18 19:01 IV Dye tiffanie shellfish derived Allergy Severe Swelling/Ed Verified 04/25/18 19:01 tiffanie Penicillins Allergy Intermediate Hives Verified 04/25/18 19:01 gabapentin AdvReac Mild URINARY SX Verified 04/25/18 19:01 General Stated Complaint: GenMedical SARAH: 3 Review of Systems Review of Systems All systems reviewed & are unremarkable except as noted in HPI and below Constitutional Denies fever(s) Gastrointestinal Reports as per HPI [facility] Medical History Thrombosed external hemorrhoid (Acute) Liver cirrhosis secondary to JIMENEZ (Acute) History of encephalitis (Acute) Hyperlipemia (Acute) NAFLD (nonalcoholic fatty liver disease) (Acute) Aortic stenosis (Chronic) Depression (Chronic) Diabetes (Chronic) HTN (hypertension) (Chronic) Myocardial infarction (Chronic) Obesity (Chronic) Obstructive sleep apnea (Chronic) Osteoarthritis (Chronic) Seizure disorder (Chronic) Surgical History S/P hemorrhoidectomy (Acute ~04/21/18) Status post abdominal paracentesis (Acute ~04/25/18) H/O aortic valve replacement (Acute) History of carpal tunnel release (Acute) S/P TAVR (transcatheter aortic valve replacement) (Acute) History of coronary artery stent placement (Chronic) Social History Smoking/Tobacco Use Status: Never Alcohol Intake: former Drug use: Never Substance use type: does not use Do you feel safe at home: Yes Do you feel safe in your relationship?: Yes Exam Const General: cooperative and no acute distress HENMT Head: normocephalic Mouth: moist mucous membranes Eyes Conjunctivae: normal conjunctivae Sclera: scleral abnormality (icteric) Neck Neck: trachea midline and supple Resp Auscultation: clear to auscultation bilaterally, rales bilaterally at the base and no rhonchi Cardio Jugular venous pressure: no JVD Rate: regular rate and not tachycardic Rhythm: regular rhythm Heart Sounds: murmur systolic II/ GI Inspection: distended Palpation: soft, no guarding, no masses, not rigid, nontender and ascites Skin General skin exam: jaundice Neuro General: alert, awake, oriented x3 and tone normal Extrem General: no edema Course Vital Signs Temperature 36.3 C L 04/25/18 13:38 Pulse 56 L 04/25/18 13:38 Respiratory Rate 16 04/25/18 13:38 Blood Pressure 128/62 04/25/18 13:38 Pulse Oximetry 95 04/25/18 13:38 Temperature 36.3 C L 04/25/18 13:38 Temperature Source Temporal Artery Scan 04/25/18 13:38 Pulse 56 L 04/25/18 13:38 Respiratory Rate 16 04/25/18 13:38 Respiratory Effort 04/25/18 13:38 Blood Pressure 128/62 04/25/18 13:38 Blood Pressure Position Sitting 04/25/18 13:38 Pulse Oximetry 95 04/25/18 13:38
--- NOTE | 2018-04-25 14:22 | ED.GENADUL_ITS ---
Discharge Plan Disposition Patient Disposition: HOME Condition: Improving Discharge Details Chief Complaint: GenMedical Clinical Impression: Ascites Primary Care Provider: Rauol Akhtar ED Provider: Tadeo Hendricks Home Meds and New Rx's Prescriptions: Continued furosemide 20 mg tablet 20 mg PO QAM RF: 0 spironolactone 100 mg tablet 50 mg PO DAILY RF: 0 lorazepam 0.5 mg tablet 0.5 mg PO HS PRN RF: 0 lisinopril 10 mg tablet 10 mg PO DAILY Qty: 90 RF: 3 multivitamin [Daily Multi-Vitamin] 1 EACH tablet 1 ea PO DAILY RF: 0 aspirin [Aspirin Low-Strength] 81 MG tablet,chewable 81 mg PO NIGHTLY RF: 0 folic acid 0.4 MG tablet 0.4 mg PO DAILY RF: 0 nystatin (bulk) 1 EACH powder 1 applic Topical BID PRNQty: 1 RF: 5 sertraline 100 mg tablet 150 mg PO DAILY Qty: 135 RF: 3 nitroglycerin 0.4 MG tablet, sublingual 0.4 mg Sublingual PRN PRNRF: 0 Tumeric 1 cap PO DAILY RF: 0 lactulose 10 GM/15 ML solution 1 ea PO TID RF: 0 milk thistle 500 mg Capsule 500 mg PO DAILY RF: 0 ibuprofen 800 mg tablet 800 mg PO TID PRN (Reason: pain) Qty: 60 RF: 8 dibucaine 1 % ointment 1 applic TP QID Qty: 30 RF: 6 Discharge Instructions Instructions: Ascites (ED) Additional Instructions: Please follow-up with your gastrointestinal specialist and primary care physician on Friday. Return to the ER for any worsening or new concerning symptoms. Referrals: Raoul Akhtar [Primary Care Provider] - Medical Decision Making 14:20 --63-year-old male with history of JIMENEZ with liver cirrhosis, esophageal varices, rectal varices, thrombocytopenia, here with worsening ascites over the past 2 weeks. Patient has associated wheezing and he does have some rales on exam. He is saturating well in no respiratory distress. I called and spoke with Dr. Coughlin, general surgeon wind operations supervisor, she does not feel comfortable performing paracentesis given his significant comorbidities and recommends transfer to tertiary care facility. -- I spoke with [facility] [place] - no beds available for transfer. My transfer request was refused. -- I spoke with [facility] transfer center and hospitalist - no beds available for transfer. My transfer request was refused. -- I spoke again with Dr. Willson who agrees to perform pericentesis utilizing US guidance here at bedside as long as patient provides informed consent given risks. She will speak with patient. --Paracentesis performed by Dr. Coughlin who removed 6 L of fluid. Patient was monitored in the emergency department post procedurally and remained hemodynamically stable. He was able to ambulate without any difficulty. Strict instructions were provided the patient to follow-up with his gastrointestinal specialist this week. Disposition decision was made weighing the risks and benefits of hospitalization versus outpatient treatment, the risk for further decompensation, and the patient's wishes. The patient was stable and requested discharge. Prior to discharge, my usual and customary return precautions were reviewed with the patient - this included follow-up instructions and reason to return to the emergency department if condition worsens, does not improve as expected, or other new concerns arise. HPI General Mode of arrival: ambulatory . Date/Time Provider Initiated Documentation: 04/25/18 13:44 . Limitations to Documentation: no limitations . Information obtained by: patient . HPI Narrative: 63-year-old male with multiple medical problems including history of liver cirrhosis secondary JIMENEZ, cytopenia, bacterial endocarditis, aortic valve replacement, esophageal and rectal varices, recent hemorrhoids requiring hemorrhoidectomy, here with chief complaint of abdominal distention. Patient notes that over the past 2 weeks he has had progressive worsening swelling of his abdomen. Swelling is now severe. No modifiers. He has associated jaundice as well as associated mild intermittent wheeze. No vomiting. No fever. Related Data Home Medications Medication Instructions Recorded Confirmed aspirin [Aspirin Low-Strength] 81 mg PO NIGHTLY tab-cap 05/13/12 04/21/18 multivitamin [Daily Multi-Vitamin] 1 ea PO DAILY 05/13/12 04/21/18 nitroglycerin 0.4 mg SUBLINGUAL PRN PRN 11/03/15 04/21/18 Tumeric 1 cap PO DAILY 06/12/16 04/25/18 folic acid 0.4 mg PO DAILY tab-cap 11/08/16 04/21/18 lactulose 1 ea PO TID 11/09/16 04/21/18 nystatin (bulk) 1 applic TOPICAL BID PRN #1 bottle 08/31/17 04/21/18 lorazepam 0.5 mg tablet 0.5 mg PO HS PRN tab 10/18/17 04/21/18 furosemide 20 mg tablet 20 mg PO QAM tab 10/22/17 04/21/18 spironolactone 100 mg tablet 50 mg PO DAILY 10/22/17 04/21/18 lisinopril 10 mg tablet 10 mg PO DAILY #90 tab 03/10/18 04/21/18 sertraline 100 mg tablet 150 mg PO DAILY #135 tab 03/10/18 04/21/18 dibucaine 1 applic TP QID #30 gm 04/21/18 ibuprofen 800 mg PO TID PRN #60 tab 04/21/18 milk thistle 500 mg PO DAILY 04/21/18 04/21/18 Previous Rx's Medication Instructions Recorded lisinopril 10 mg tablet 10 mg PO DAILY #90 tab 03/10/18 sertraline 100 mg tablet 150 mg PO DAILY #135 tab 03/10/18 dibucaine 1 applic TP QID #30 gm 04/21/18 ibuprofen 800 mg PO TID PRN #60 tab 04/21/18 Allergies Allergy/AdvReac Type Severity Reaction Status Date / Time Iodinated Contrast- Oral and Allergy Severe Swelling/Ed Verified 04/25/18 19:01 IV Dye tiffanie shellfish derived Allergy Severe Swelling/Ed Verified 04/25/18 19:01 tiffanie Penicillins Allergy Intermediate Hives Verified 04/25/18 19:01 gabapentin AdvReac Mild URINARY SX Verified 04/25/18 19:01 General Stated Complaint: GenMedical SARAH: 3 Review of Systems Review of Systems All systems reviewed & are unremarkable except as noted in HPI and below Constitutional Denies fever(s) Gastrointestinal Reports as per HPI [facility] Medical History Thrombosed external hemorrhoid (Acute) Liver cirrhosis secondary to JIMENEZ (Acute) History of encephalitis (Acute) Hyperlipemia (Acute) NAFLD (nonalcoholic fatty liver disease) (Acute) Aortic stenosis (Chronic) Depression (Chronic) Diabetes (Chronic) HTN (hypertension) (Chronic) Myocardial infarction (Chronic) Obesity (Chronic) Obstructive sleep apnea (Chronic) Osteoarthritis (Chronic) Seizure disorder (Chronic) Surgical History S/P hemorrhoidectomy (Acute ~04/21/18) Status post abdominal paracentesis (Acute ~04/25/18) H/O aortic valve replacement (Acute) History of carpal tunnel release (Acute) S/P TAVR (transcatheter aortic valve replacement) (Acute) History of coronary artery stent placement (Chronic) Social History Smoking/Tobacco Use Status: Never Alcohol Intake: former Drug use: Never Substance use type: does not use Do you feel safe at home: Yes Do you feel safe in your relationship?: Yes Exam Const General: cooperative and no acute distress HENMT Head: normocephalic Mouth: moist mucous membranes Eyes Conjunctivae: normal conjunctivae Sclera: scleral abnormality (icteric) Neck Neck: trachea midline and supple Resp Auscultation: clear to auscultation bilaterally, rales bilaterally at the base and no rhonchi Cardio Jugular venous pressure: no JVD Rate: regular rate and not tachycardic Rhythm: regular rhythm Heart Sounds: murmur systolic II/ GI Inspection: distended Palpation: soft, no guarding, no masses, not rigid, nontender and ascites Skin General skin exam: jaundice Neuro General: alert, awake, oriented x3 and tone normal Extrem General: no edema Course Vital Signs Temperature 36.3 C L 04/25/18 13:38 Pulse 56 L 04/25/18 13:38 Respiratory Rate 16 04/25/18 13:38 Blood Pressure 128/62 04/25/18 13:38 Pulse Oximetry 95 04/25/18 13:38 Temperature 36.3 C L 04/25/18 13:38 Temperature Source Temporal Artery Scan 04/25/18 13:38 Pulse 56 L 04/25/18 13:38 Respiratory Rate 16 04/25/18 13:38 Respiratory Effort 04/25/18 13:38 Blood Pressure 128/62 04/25/18 13:38 Blood Pressure Position Sitting 04/25/18 13:38 Pulse Oximetry 95 04/25/18 13:38
[2018-04-25 14:26] LABS: Lactate 1.2 mmol/L (0.6-1.4)
[2018-04-25 14:37] LABS: INR 1.1 (0.9-1.1)
[2018-04-25 14:39] LABS: Absolute Basophil Count 0.01 k/cumm (0.0-0.2); Absolute Eosinophil Count 0.11 k/cumm (0.0-0.7); Absolute Lymphocyte Count 0.43 k/cumm (1.2-3.4); Absolute Monocyte Count 0.31 k/cumm (0.11-0.7); Absolute Neutrophil Count 1.86 k/cumm (1.2-6.7); Basophils % 0.4; HCT 37.7 % (40.0-50.0); HGB 12.4 g/dL (13.5-17.5); Lymphocytes % 15.8; Mean Corp. HGB Concentration 32.9 g/dL (32.0-36.0); Mean Corpuscular Hemoglobin 29.4 pg (27.0-33.0); Mean Corpuscular Volume 89.3 fL (80-95); Mean Platelet Volume 11.8 fL (8.0-11.0); Monocytes % 11.4; Neutrophils % 68.4; RBC 4.22 m/cumm (4.50-6.00); RBC Distribution Width 15.3 % (11.8-14.1); White Blood Cell Count 2.72 k/cumm (4.4-10.8)
[2018-04-25 14:47] LABS: ALT 39 U/L (12-78); AST 66 U/L (15-37); Albumin 2.8 g/dL (3.4-5.0); Alkaline Phosphatase 206 U/L (46-116); Anion Gap 9.1 mmol/L (3-11); BUN 17 mg/dL (7-18); Bilirubin, Total 0.6 mg/dL (0.2-1.0); CO2 24.9 mmol/L (21.0-32.0); CREATININE 0.88 mg/dL (0.70-1.30); Calcium 8.4 mg/dL (8.5-10.1); Chloride 104 mmol/L (98-107); Glucose 120 mg/dL (70-100); Potassium 3.9 mmol/L (3.5-5.1); Sodium 138 mmol/L (136-145); Total Protein 6.3 g/dL (6.4-8.2)
[2018-04-25 15:00] LABS: Diff Comment PLT Morph Reviewed; Platelet Count 38 x1000/uL (130-400)
[2018-04-25 15:01] LABS: RBC Morphology Normal
[2018-04-25] MEDS: Lidocaine 2% Multi-Dose 50 ML VIAL (16:26)
--- NOTE | 2018-04-25 17:16 | W.PM.HP.N ---
Date of service: 04/25/18 Time of Service: 17:16 Assessment and Plan (1) Ascites: Current visit: Yes Status: Acute A\\ Ascites secondary to JIMENEZ. Up until now it has been controlled on 20 mg of lasix and 50 mg of Spironolactone. P\\ Bedside Paracenthesis after extensive discussion with patient and regarding risks. Risks, benefits and complications have been reviewed. Complications include but are not limited to bleeding, pain, infection, injury to underlying bowel, hypotension. Questions were entertained and answered to their satisfaction and they agreed to proceed. No guarantees were given or implied. Qualifiers: Ascites type: other type Qualified Code(s): R18.8 - Other ascites (2) Thrombocytopenia: Current visit: No Status: Acute A\\ PLT are 38 today Risks of bleeding discussed with family History of Present Illness Chief Complaint: SOB Consults Consult date: 04/25/18 Requesting physician: Tadeo Hendricks Narrative: Mr. Arias is a 63 year old with a history of cirrhosis due to Fatty liver who is being [place] by [place] [facility] He has a history of esophageal varices, rectal varices, Portal hypertension who comes in today complaining of increase weight and SOB and wheezing. Never has had a paracenthesis before. He is on Lasix 20 mg and spironolactone 50 daily for last 6 months. he was on 40 and 100 before that. He is also on lactulose daily. He had a hemorrhoid excision done on Friday under local. He tells me he is very bruised. He also has low PLTs. PLts today are 38. I was asked to see him for a paracenthesis after both [facility] stated that there were no beds. I am concerned for bleeding. Review of Systems Constitutional Denies fever(s) and Reports weight gain Cardiovascular Denies chest pain, Denies chest pain at rest, Denies edema, Denies irregular heart rhythm, Denies palpitations, Denies dyspnea and Denies dyspnea on exertion Respiratory Denies cough, Denies hemoptysis, Denies dyspnea and Denies dyspnea on exertion Gastrointestinal Reports as per HPI Endocrine Denies palpitations [facility] Medical History Thrombosed external hemorrhoid (Acute) Liver cirrhosis secondary to JIMENEZ (Acute) History of encephalitis (Acute) Hyperlipemia (Acute) NAFLD (nonalcoholic fatty liver disease) (Acute) Aortic stenosis (Chronic) Depression (Chronic) Diabetes (Chronic) HTN (hypertension) (Chronic) Myocardial infarction (Chronic) Obesity (Chronic) Obstructive sleep apnea (Chronic) Osteoarthritis (Chronic) Seizure disorder (Chronic) Surgical History S/P hemorrhoidectomy (Acute ~04/21/18) Status post abdominal paracentesis (Acute ~04/25/18) H/O aortic valve replacement (Acute) History of carpal tunnel release (Acute) S/P TAVR (transcatheter aortic valve replacement) (Acute) History of coronary artery stent placement (Chronic) Social History Smoking/Tobacco Use Status: Never Alcohol Intake: former Drug use: Never Substance use type: does not use Do you feel safe at home: Yes Do you feel safe in your relationship?: Yes Meds Home Medications Medication Instructions Recorded Confirmed Type aspirin [Aspirin Low-Strength] 81 mg PO NIGHTLY tab-cap 05/13/12 04/21/18 History multivitamin [Daily Multi-Vitamin] 1 ea PO DAILY 05/13/12 04/21/18 History Bipap 08/05/14 04/20/18 Clinic OneTouch Ultra Test #100 strip 01/24/15 04/20/18 History lancets [OneTouch Delica Lancets] #100 ea 01/24/15 04/20/18 History omega-3 fatty acids-fish oil [Fish 1 ea PO DAILY 08/07/15 04/21/18 History Oil] nitroglycerin 0.4 mg SUBLINGUAL PRN PRN 11/03/15 04/21/18 History clopidogrel [Plavix] 75 mg PO DAILY #90 tab-cap 01/22/16 04/20/18 History acetaminophen 1,000 mg PO Q6H PRN tab-cap 02/29/16 04/20/18 History glucosamine sulfate 500 mg PO DAILY 02/29/16 04/21/18 History Tumeric 1 cap PO DAILY 06/12/16 04/21/18 History folic acid 0.4 mg PO DAILY tab-cap 11/08/16 04/21/18 History lactulose 1 ea PO TID 11/09/16 04/21/18 History nystatin (bulk) 1 applic TOPICAL BID PRN #1 bottle 08/31/17 04/21/18 History atorvastatin 80 mg tablet 80 mg PO HS tab 10/18/17 04/20/18 History lorazepam 0.5 mg tablet 0.5 mg PO HS PRN tab 10/18/17 04/21/18 History furosemide 20 mg tablet 20 mg PO QAM tab 10/22/17 04/21/18 History spironolactone 100 mg tablet 50 mg PO DAILY 10/22/17 04/21/18 History lisinopril 10 mg tablet 10 mg PO DAILY #90 tab 03/10/18 04/21/18 Rx sertraline 100 mg tablet 150 mg PO DAILY #135 tab 03/10/18 04/21/18 Rx dibucaine 1 applic TP QID #30 gm 04/21/18 Rx ibuprofen 800 mg PO TID PRN #60 tab 04/21/18 Rx milk thistle 500 mg PO DAILY 04/21/18 04/21/18 History sertraline 1.5 tab PO DAILY 04/21/18 04/21/18 History tramadol [Ultram] 50 mg PO Q4H PRN #14 tab 04/21/18 Rx Allergies Allergy/AdvReac Type Severity Reaction Status Date / Time Iodinated Contrast- Oral and Allergy Severe Swelling/Ed Verified 04/25/18 13:42 IV Dye tiffanie shellfish derived Allergy Severe Swelling/Ed Verified 04/25/18 13:42 tiffanie Penicillins Allergy Intermediate Hives Verified 04/25/18 13:42 gabapentin AdvReac Mild URINARY SX Verified 04/25/18 13:42 Exam GI Inspection: distended Palpation: soft and ascites (Us done at bedised. Large amount of fluid noted) Auscultation: normal bowel sounds Results Labs : 04/25/18 14:20 04/25/18 14:20 Laboratory Results - last 24 hr 04/25/18 04/25/18 04/25/18 14:20 14:20 14:20 WBC 2.72 L RBC 4.22 L Hgb 12.4 L Hct 37.7 L MCV 89.3 MCH 29.4 MCHC 32.9 RDW 15.3 H Plt Count 38 L MPV 11.8 H Immature Gran % 0.0 Neutrophils % 68.4 Lymphocytes % 15.8 Monocytes % 11.4 Eosinophils % 4.0 Basophils % 0.4 Absolute Neutrophils 1.86 Absolute Lymphocytes 0.43 L Absolute Monocytes 0.31 Absolute Eosinophils 0.11 Absolute Basophils 0.01 Differential Comment Plt morph reviewed RBC Morphology Normal PT INR Sodium 138 Potassium 3.9 Chloride 104 Carbon Dioxide 24.9 Anion Gap 9.1 BUN 17 Creatinine 0.88 Estimated GFR/1.73 m2 >= 60.00 Glucose 120 H Lactate 1.2 Calcium 8.4 L Total Bilirubin 0.6 AST 66 H ALT 39 Alkaline Phosphatase 206 H Total Protein 6.3 L Albumin 2.8 L 04/25/18 14:20 WBC RBC Hgb Hct MCV MCH MCHC RDW Plt Count MPV Immature Gran % Neutrophils % Lymphocytes % Monocytes % Eosinophils % Basophils % Absolute Neutrophils Absolute Lymphocytes Absolute Monocytes Absolute Eosinophils Absolute Basophils Differential Comment RBC Morphology PT 11.0 INR 1.1 Sodium Potassium Chloride Carbon Dioxide Anion Gap BUN Creatinine Estimated GFR/1.73 m2 Glucose Lactate Calcium Total Bilirubin AST ALT Alkaline Phosphatase Total Protein Albumin Last Vital Signs Temp 97.3 F L 04/25/18 13:38 Pulse 56 L 04/25/18 13:38 Resp 11 L 04/25/18 16:10 BP 99/46 L 04/25/18 14:48 Pulse Ox 96 04/25/18 16:10 Procedures Paracentesis Time out performed: Yes Indication: Ascites Procedure: therapeutic paracentesis Location: RLQ Local anesthetic used: lidocaine 1% Amount of anesthesia used (ml): 10 Bedside ultrasound used: yes, Ascites confirmed and location marked Preparation: 11 blade used to make jennifer in skin Amount of fluid obtained (ml): 6,000 Fluid: clear Size of needle used: 8 Post procedure exam: awake, alert, normal BP, normal HR and normal SpO2 Patient tolerated procedure: well Complications: none
--- NOTE | 2018-04-25 17:33 | HPE_ITS ---
Date of service: 04/25/18 Time of Service: 17:16 Assessment and Plan (1) Ascites: Current visit: Yes Status: Acute A\\ Ascites secondary to JIMENEZ. Up until now it has been controlled on 20 mg of lasix and 50 mg of Spironolactone. P\\ Bedside Paracenthesis after extensive discussion with patient and re garding risks. Risks, benefits and complications have been reviewed. Complications include but are not limited to bleeding, pain, infection, injury to underlying bowel, hypotension. Questions were entertained and answered to their satisfaction and they agreed to proceed. No guarantees were given or implied. Qualifiers: Ascites type: other type Qualified Code(s): R18.8 - Other ascites (2) Thrombocytopenia: Current visit: No Status: Acute A\\ PLT are 38 today Risks of bleeding discussed with family History of Present Illness Chief Complaint: SOB Consults Consult date: 04/25/18 Requesting physician: Tadeo Hendricks Narrative: Mr. Arias is a 63 year old with a history of cirrhosis due to Fatty liver who is being followed by GI at [facility]. He has a history of esophageal varices, rectal varices, Portal hypertension who comes in today complaining of increase weight and SOB and wheezing. Never has had a paracenthesis before. He is on Lasix 20 mg and spironolactone 50 daily for last 6 months. he was on 40 and 100 before that. He is also on lactulose daily. He had a hemorrhoid excision done on Friday under local. He tells me he is very bruised. He also has low PLTs. PLts today are 38. I was asked to see him for a paracenthesis after both [facility] and [facility] stated that there were no beds. I am concerned for bleeding. Review of Systems Constitutional Denies fever(s) and Reports weight gain Cardiovascular Denies chest pain, Denies chest pain at rest, Denies edema, Denies irregular heart rhythm, Denies palpitations, Denies dyspnea and Denies dyspnea on exertion Respiratory Denies cough, Denies hemoptysis, Denies dyspnea and Denies dyspnea on exertion Gastrointestinal Reports as per HPI Endocrine Denies palpitations [facility] Medical History Thrombosed external hemorrhoid (Acute) Liver cirrhosis secondary to JIMENEZ (Acute) History of encephalitis (Acute) Hyperlipemia (Acute) NAFLD (nonalcoholic fatty liver disease) (Acute) Aortic stenosis (Chronic) Depression (Chronic) Diabetes (Chronic) HTN (hypertension) (Chronic) Myocardial infarction (Chronic) Obesity (Chronic) Obstructive sleep apnea (Chronic) Osteoarthritis (Chronic) Seizure disorder (Chronic) Surgical History S/P hemorrhoidectomy (Acute ~04/21/18) Status post abdominal paracentesis (Acute ~04/25/18) H/O aortic valve replacement (Acute) History of carpal tunnel release (Acute) S/P TAVR (transcatheter aortic valve replacement) (Acute) History of coronary artery stent placement (Chronic) Social History Smoking/Tobacco Use Status: Never Alcohol Intake: former Drug use: Never Substance use type: does not use Do you feel safe at home: Yes Do you feel safe in your relationship?: Yes Meds Home Medications Medication Instructions Recorded Confirmed Type aspirin [Aspirin Low-Strength] 81 mg PO NIGHTLY tab-cap 05/13/12 04/21/18 History multivitamin [Daily Multi-Vitamin] 1 ea PO DAILY 05/13/12 04/21/18 History Bipap 08/05/14 04/20/18 Clinic OneTouch Ultra Test #100 strip 01/24/15 04/20/18 History lancets [OneTouch Delica Lancets] #100 ea 01/24/15 04/20/18 History omega-3 fatty acids-fish oil [Fish 1 ea PO DAILY 08/07/15 04/21/18 History Oil] nitroglycerin 0.4 mg SUBLINGUAL PRN PRN 11/03/15 04/21/18 History clopidogrel [Plavix] 75 mg PO DAILY #90 tab-cap 01/22/16 04/20/18 History acetaminophen 1,000 mg PO Q6H PRN tab-cap 02/29/16 04/20/18 History glucosamine sulfate 500 mg PO DAILY 02/29/16 04/21/18 History Tumeric 1 cap PO DAILY 06/12/16 04/21/18 History folic acid 0.4 mg PO DAILY tab-cap 11/08/16 04/21/18 History lactulose 1 ea PO TID 11/09/16 04/21/18 History nystatin (bulk) 1 applic TOPICAL BID PRN #1 bottle 08/31/17 04/21/18 History atorvastatin 80 mg tablet 80 mg PO HS tab 10/18/17 04/20/18 History lorazepam 0.5 mg tablet 0.5 mg PO HS PRN tab 10/18/17 04/21/18 History furosemide 20 mg tablet 20 mg PO QAM tab 10/22/17 04/21/18 History spironolactone 100 mg tablet 50 mg PO DAILY 10/22/17 04/21/18 History lisinopril 10 mg tablet 10 mg PO DAILY #90 tab 03/10/18 04/21/18 Rx sertraline 100 mg tablet 150 mg PO DAILY #135 tab 03/10/18 04/21/18 Rx dibucaine 1 applic TP QID #30 gm 04/21/18 Rx ibuprofen 800 mg PO TID PRN #60 tab 04/21/18 Rx milk thistle 500 mg PO DAILY 04/21/18 04/21/18 History sertraline 1.5 tab PO DAILY 04/21/18 04/21/18 History tramadol [Ultram] 50 mg PO Q4H PRN #14 tab 04/21/18 Rx Allergies Allergy/AdvReac Type Severity Reaction Status Date / Time Iodinated Contrast- Oral and Allergy Severe Swelling/Ed Verified 04/25/18 13:42 IV Dye tiffanie shellfish derived Allergy Severe Swelling/Ed Verified 04/25/18 13:42 tiffanie Penicillins Allergy Intermediate Hives Verified 04/25/18 13:42 gabapentin AdvReac Mild URINARY SX Verified 04/25/18 13:42 Exam GI Inspection: distended Palpation: soft and ascites (Us done at bedised. Large amount of fluid noted) Auscultation: normal bowel sounds Results Labs : 04/25/18 14:20 04/25/18 14:20 Laboratory Results - last 24 hr 04/25/18 04/25/18 04/25/18 14:20 14:20 14:20 WBC 2.72 L RBC 4.22 L Hgb 12.4 L Hct 37.7 L MCV 89.3 MCH 29.4 MCHC 32.9 RDW 15.3 H Plt Count 38 L MPV 11.8 H Immature Gran % 0.0 Neutrophils % 68.4 Lymphocytes % 15.8 Monocytes % 11.4 Eosinophils % 4.0 Basophils % 0.4 Absolute Neutrophils 1.86 Absolute Lymphocytes 0.43 L Absolute Monocytes 0.31 Absolute Eosinophils 0.11 Absolute Basophils 0.01 Differential Comment Plt morph reviewed RBC Morphology Normal PT INR Sodium 138 Potassium 3.9 Chloride 104 Carbon Dioxide 24.9 Anion Gap 9.1 BUN 17 Creatinine 0.88 Estimated GFR/1.73 m2 >= 60.00 Glucose 120 H Lactate 1.2 Calcium 8.4 L Total Bilirubin 0.6 AST 66 H ALT 39 Alkaline Phosphatase 206 H Total Protein 6.3 L Albumin 2.8 L 04/25/18 14:20 WBC RBC Hgb Hct MCV MCH MCHC RDW Plt Count MPV Immature Gran % Neutrophils % Lymphocytes % Monocytes % Eosinophils % Basophils % Absolute Neutrophils Absolute Lymphocytes Absolute Monocytes Absolute Eosinophils Absolute Basophils Differential Comment RBC Morphology PT 11.0 INR 1.1 Sodium Potassium Chloride Carbon Dioxide Anion Gap BUN Creatinine Estimated GFR/1.73 m2 Glucose Lactate Calcium Total Bilirubin AST ALT Alkaline Phosphatase Total Protein Albumin Last Vital Signs Temp 97.3 F L 04/25/18 13:38 Pulse 56 L 04/25/18 13:38 Resp 11 L 04/25/18 16:10 BP 99/46 L 04/25/18 14:48 Pulse Ox 96 04/25/18 16:10 Procedures Paracentesis Time out performed: Yes Indication: Ascites Procedure: therapeutic paracentesis Location: RLQ Local anesthetic used: lidocaine 1% Amount of anesthesia used (ml): 10 Bedside ultrasound used: yes, Ascites confirmed and location marked Preparation: 11 blade used to make jennifer in skin Amount of fluid obtained (ml): 6,000 Fluid: clear Size of needle used: 8 Post procedure exam: awake, alert, normal BP, normal HR and normal SpO2 Patient tolerated procedure: well Complications: none
== END 2018-04-25 19:12 | disposition home or self-care (01) ==
PROVIDERS: Emergency Provider Student in an Organized Health Care Education/Training Program; PCP Family Medicine
DX: R18.8 Other ascites (principal); K74.69 Other cirrhosis of liver; K75.81 Nonalcoholic steatohepatitis (NASH)
CPT/HCPCS: 36415; 49082; 80053; 99222; 99283; 83605; 85025; 85610

== ENCOUNTER → 2018-05-04 13:19 | Outpatient (BNVA) | payer MEDICARE, SELFPAY | PROVIDERS: PCP Family Medicine; Referring Provider Family Medicine; Visit Provider Physical Therapy Assistant | DX: Z48.817 Encounter for surgical aftercare following surgery on the skin and subcutaneous tissue (principal); K64.5 Perianal venous thrombosis ==

== ENCOUNTER 2018-05-20 08:50 | Outpatient (CLI) | payer MEDICARE, SELFPAY ==
[2018-05-20 10:46] LABS: Hemoglobin A1C 5.8 % (4.5-6.2)
[2018-05-20 10:47] LABS: Potassium 4.2 mmol/L (3.5-5.1)
== END 2018-05-20 09:10 ==
PROVIDERS: PCP Family Medicine; Visit Provider Family Medicine
DX: E11.9 Type 2 diabetes mellitus without complications (principal); K75.81 Nonalcoholic steatohepatitis (NASH); K74.60 Unspecified cirrhosis of liver
CPT/HCPCS: 36415; 83036; 84132

== ENCOUNTER 2018-08-05 01:33 | Outpatient (CLI) | payer MEDICARE, SELFPAY ==
[2018-08-05 10:48] LABS: Anion Gap 8.5 mmol/L (3-11); BUN 34 mg/dL (7-18); CO2 24.5 mmol/L (21.0-32.0); Calcium 8.5 mg/dL (8.5-10.1); Chloride 105 mmol/L (98-107); Glucose 98 mg/dL (70-100); Potassium 4.9 mmol/L (3.5-5.1); Sodium 138 mmol/L (136-145)
== END 2018-08-05 01:53 ==
PROVIDERS: PCP Family Medicine; Visit Provider Internal Medicine
DX: I10 Essential (primary) hypertension (principal); E11.9 Type 2 diabetes mellitus without complications; K75.81 Nonalcoholic steatohepatitis (NASH)
CPT/HCPCS: 36415; 80048

== ENCOUNTER 2018-08-07 10:02 | Outpatient (CLI) | payer MEDICARE, SELFPAY ==
[2018-08-07 11:38] LABS: ALT 36 U/L (12-78); AST 42 U/L (15-37); Albumin 2.8 g/dL (3.4-5.0); Alkaline Phosphatase 194 U/L (46-116); Anion Gap 7.4 mmol/L (3-11); BUN 41 mg/dL (7-18); Bilirubin, Total 0.5 mg/dL (0.2-1.0); CO2 23.6 mmol/L (21.0-32.0); CREATININE 1.24 mg/dL (0.70-1.30); Calcium 8.5 mg/dL (8.5-10.1); Chloride 105 mmol/L (98-107); Estimated GFR 59.07 (mL/min/1.73m2); Glucose 103 mg/dL (70-100); Sodium 136 mmol/L (136-145); Total Protein 6.2 g/dL (6.4-8.2)
[2018-08-07 12:14] LABS: Absolute Basophil Count 0.01 k/cumm (0.0-0.2); Absolute Eosinophil Count 0.07 k/cumm (0.0-0.7); Absolute Lymphocyte Count 0.51 k/cumm (1.2-3.4); Absolute Monocyte Count 0.46 k/cumm (0.11-0.7); Absolute Neutrophil Count 3.28 k/cumm (1.2-6.7); Basophils % 0.2; Eosinophils % 1.6; HCT 33.8 % (40.0-50.0); Lymphocytes % 11.8; Mean Corp. HGB Concentration 32.5 g/dL (32.0-36.0); Mean Corpuscular Hemoglobin 28.6 pg (27.0-33.0); Mean Corpuscular Volume 87.8 fL (80-95); Monocytes % 10.6; Neutrophils % 75.8; RBC 3.85 m/cumm (4.50-6.00); RBC Distribution Width 14.8 % (11.8-14.1); White Blood Cell Count 4.33 k/cumm (4.4-10.8)
[2018-08-07 12:22] LABS: INR 1.1 (0.9-1.1)
[2018-08-07 12:47] LABS: Diff Comment PLT Morph Reviewed; Platelet Count 52 x1000/uL (130-400); RBC Morphology Normal
== END 2018-08-07 10:22 ==
PROVIDERS: PCP Family Medicine; Visit Provider Internal Medicine
DX: R18.8 Other ascites (principal); K74.60 Unspecified cirrhosis of liver; K72.90 Hepatic failure, unspecified without coma
CPT/HCPCS: 36415; 80048; 80053; 85025; 85610

== ENCOUNTER 2018-08-31 09:56 | Outpatient (REF) | payer MEDICARE, SELFPAY ==
[2018-09-01 14:28] LABS: CREATININE 1.07 mg/dL (0.70-1.30)
[2018-09-01 14:30] LABS: PROTEIN 9.5 mg/dL (0.0-11.9); TOTAL PROTEIN,URINE TIMED 102.1 mg/24hr (0.0-149.1); Total Volume 1075 ml
[2018-09-01 14:33] LABS: Creatinine Clearance Urine 66 mls/min (97-137)
[2018-09-01 15:03] LABS: Creatinine,Urine 94.89 mg/dL
== END 2018-08-31 10:16 ==
LOC: LBN 09:56
PROVIDERS: PCP Family Medicine; Visit Provider Internal Medicine
DX: K74.60 Unspecified cirrhosis of liver (principal); R18.8 Other ascites
CPT/HCPCS: 36415; 81050; 82575; 84155

== ENCOUNTER 2019-04-03 21:18 | Emergency (ER) | payer MEDICARE, OTHER, SELFPAY ==
[2019-04-03 21:00] VITALS: BP 113/67; PULSE 60; RESP 18; TEMP 36.3; O2SAT 98
--- NOTE | 2019-04-03 21:09 | ED.GENADUL_ITS ---
Discharge Plan Disposition Patient Disposition: [facility] Condition: Critical Discharge Details Chief Complaint: Abd Prob Clinical Impression: Acute upper gastrointestinal bleeding Primary Care Provider: Raoul Akhtar ED Provider: Bucky Cervantes Home Meds and New Rx's Prescriptions: No Action vitamin A palmitate 10,000 unit tablet 10,000 unit PO DAILY RF: 0 cholecalciferol (vitamin D3) 2,000 unit capsule 2,000 unit PO DAILY RF: 0 lorazepam 0.5 mg tablet 0.5 mg PO HS PRN RF: 0 spironolactone 100 mg tablet 100 mg PO DAILY RF: 0 aspirin [Aspirin Low-Strength] 81 MG tablet,chewable 81 mg PO NIGHTLY RF: 0 nystatin (bulk) 1 EACH powder 1 applic Topical BID PRNQty: 1 RF: 5 lactulose 10 gram/15 mL solution 15 ml PO TID Qty: 1892 RF: 3 furosemide 20 mg tablet 40 mg PO QAM Qty: 180 RF: 3 sertraline 100 mg tablet 150 mg PO DAILY Qty: 135 RF: 3 zinc sulfate 220 (50) mg capsule 220 mg PO BID RF: 0 nitroglycerin 0.4 MG tablet, sublingual 0.4 mg Sublingual PRN PRNRF: 0 Medical Decision Making 64 yo male with hx of known esophageal varices that have required banding in the past (last about a year ago per patient) secondary to liver disease from JIMENEZ, htn, who comes in after he had two episodes of vomit of bright red blood tonight and has never had this in the past. Denies any fevers, chills, chest pain, sob. HAs no focal motor or sensation deficits. Does have distended abdomen without tenderness, has ascites and states goes to [facility] every Friday to have it drained. Suspect variceal bleed, will tx with ppi, ceftriaxone, octreotide, obtain labs and have nursing place NG tube and monitor. shortly after ceftriaxone was started he complained of itching of head, hands and feet, no rashes, gi or respiratory symptoms. Remainds HD stable, ceftriaxone stopped, will order ciprofloxacin Pt now actively having hematemsis and had what looked like at least a half gallon of blood. NG tube placed without complications and draining dark blood. Given amount of blood will order packed red cells. Will discuss with [facility] about transfer spoke with Dr. Daly from icu as well as gi fellow and they agree with transfer to their icu and current course of treatment. Patient still caox4 and protecting airway so do not feel intubation indicated Differential Diagnosis Differential Diagnosis: variceal bleeding, ulcer Medical Records Medical records reviewed: Yes I reviewed the patient's medical records. Lab Data Lab results reviewed: Yes I reviewed the patient's lab results. HPI General Mode of arrival: EMS . Date/Time Provider Initiated Documentation: 04/03/19 21:23 . Limitations to Documentation: no limitations . Information obtained by: patient . History of Present Illness 64 year old M presents to the emergency department with the chief complaint of hematemesis, described as moderate, Patient started experiencing this hour(s) (2) and it has been intermittent. No relieving factors improve symptom(s), No exa cerbating factors reported . Patient did receive the following treatments prior to arrival, none Related Data Home Medications Medication Instructions Recorded Confirmed aspirin [Aspirin Low-Strength] 81 mg PO NIGHTLY tab-cap 05/13/12 04/03/19 nitroglycerin 0.4 mg SUBLINGUAL PRN PRN 11/03/15 04/03/19 nystatin (bulk) 1 applic TOPICAL BID PRN #1 bottle 08/31/17 02/16/19 lorazepam 0.5 mg tablet 0.5 mg PO HS PRN tab 10/18/17 04/03/19 spironolactone 100 mg tablet 100 mg PO DAILY tab 05/20/18 04/03/19 lactulose 10 gram/15 mL oral 15 ml PO TID #1892 ml 05/23/18 04/03/19 solution furosemide 20 mg tablet 40 mg PO QAM #180 tab 12/07/18 04/03/19 sertraline 100 mg tablet 150 mg PO DAILY #135 tab 12/07/18 04/03/19 cholecalciferol (vitamin D3) 50 2,000 unit PO DAILY 12/09/18 04/03/19 mcg (2,000 unit) capsule vitamin A palmitate 10,000 unit 10,000 unit PO DAILY 12/09/18 04/03/19 tablet zinc sulfate 220 mg PO BID 12/15/18 04/03/19 Previous Rx's Medication Instructions Recorded lactulose 10 gram/15 mL oral 15 ml PO TID #1892 ml 05/23/18 solution furosemide 20 mg tablet 40 mg PO QAM #180 tab 12/07/18 sertraline 100 mg tablet 150 mg PO DAILY #135 tab 12/07/18 Allergies Allergy/AdvReac Type Severity Reaction Status Date / Time Iodinated Contrast Media Allergy Severe Swelling/Ed Verified 04/03/19 21:29 [Iodinated Contrast- Oral tiffanie and IV Dye] shellfish derived Allergy Severe Swelling/Ed Verified 04/03/19 21:29 tiffanie Penicillins Allergy Intermediate Hives Verified 04/03/19 21:29 gabapentin AdvReac Mild URINARY SX Verified 04/03/19 21:29 General SARAH: 3 Review of Systems All systems reviewed & are unremarkable except as noted in HPI and below Constitutional Constitutional: Denies chills, Denies fever(s) and Denies weakness Cardiovascular Cardiovascular: Denies chest pain and Denies dyspnea Respiratory Respiratory: Denies cough and Denies dyspnea Gastrointestinal Gastrointestinal: Denies abdominal pain Musculoskeletal Musculoskeletal: Denies joint swelling Neurologic Neurologic: Denies weakness [facility] Medical History (Updated 04/03/19 @ 22:47 by Bucky Cervantes MD) Aortic stenosis (Chronic) Ascites (Chronic) S/P 6 L PARACENTESIS Depression (Chronic) Diabetes (Chronic) History of encephalitis (Acute) HTN (hypertension) (Chronic) Hyperlipemia (Acute) Liver cirrhosis secondary to JIMENEZ (Acute) Myocardial infarction (Chronic) NAFLD (nonalcoholic fatty liver disease) (Acute) Obesity (Chronic) Obstructive sleep apnea (Chronic) Osteoarthritis (Chronic) Pancreatic lesion (Acute) 04/28/18 [facility]; 2cm PANCREATIC LESION Seizure disorder (Chronic) Thrombosed external hemorrhoid (Acute) Surgical History (Updated 05/20/18 @ 14:57 by Tracy Barnes RN) H/O aortic valve replacement (Acute) History of carpal tunnel release (Acute) History of coronary artery stent placement (Chronic) S/P hemorrhoidectomy (Acute 04/21/18) Dr Jenny Cedillo, [facility] S/P TAVR (transcatheter aortic valve replacement) (Acute) Status post abdominal paracentesis (Acute ~04/25/18) Social History Smoking/Tobacco Use Status: Never Alcohol Intake: former Drug use: Never Substance use type: does not use Do you feel safe at home: Yes Do you feel safe in your relationship?: Yes Exam Const General: no acute distress Orientation: alert HENMT Head: normal to inspection Ears: external ears normal General nose exam: external nose normal Mouth: moist mucous membranes Eyes General: appearance normal, both eyes and all related structures Neck Neck: normal visual inspection Resp Effort & Inspection: normal respiratory effort and able to speak in complete sentences Cardio Rate: regular rate GI Inspection: distended Palpation: no guarding and nontender Percussion: fluid wave Skin General skin exam: no rashes or lesions noted Neuro General: alert and oriented x3 Extrem General: normal to inspection Psych Mental Status: mental status grossly normal Critical Care Time Critical Care Time Critical Care Time: Yes Total Critical Care Time: 60 (minutes) Attestation: time spent administering blood products, frequent reassessments , and hemodynamic monitoring in patient with variceal hemorrhage with potential to deteriorate at any times
[2019-04-03] MEDS: cefTRIAXone 1 GM/50 ML BAG IVPB (21:20)
[2019-04-03 21:33] LABS: Abs Immature Grans 0.01 k/cumm (0.0-0.09); Absolute Basophil Count 0.02 k/cumm (0.0-0.2); Absolute Eosinophil Count 0.08 k/cumm (0.0-0.7); Absolute Lymphocyte Count 0.63 k/cumm (1.2-3.4); Absolute Monocyte Count 0.53 k/cumm (0.11-0.7); Absolute Neutrophil Count 3.74 k/cumm (1.2-6.7); Basophils % 0.4; Eosinophils % 1.6; HCT 28.4 % (40.0-50.0); HGB 8.8 g/dL (13.5-17.5); Immature Grans % 0.2 %; Lymphocytes % 12.6; Mean Corpuscular Hemoglobin 26.4 pg (27.0-33.0); Mean Corpuscular Volume 85.3 fL (80-95); Mean Platelet Volume 10.7 fL (8.0-11.0); Monocytes % 10.6; Neutrophils % 74.6; RBC 3.33 m/cumm (4.50-6.00); RBC Distribution Width 14.9 % (11.8-14.1); White Blood Cell Count 5.01 k/cumm (4.4-10.8)
[2019-04-03 21:35] LABS: BE (Venous) -0.5 mmol/L (-3-3); HCO3 (Venous) 24 mmol/L (22-28); O2 Sat (Venous) 93 % (70-80); TCO2 (Venous) 22 mmol/L (22-29); pCO2 (Venous) 34 mm/Hg (34-47); pH (Venous) 7.45 (7.35-7.45); pO2 (Venous) 62 mm/Hg (28-44)
[2019-04-03 21:44] LABS: INR 1.2 (0.9-1.1); PTT Activated 19.8 sec (21.0-31.4); Prothrombin Time 12.2 sec (9.3-11.0)
[2019-04-03] MEDS: Ondansetron 4 MG/2 ML VIAL IVP (21:44)
--- NOTE | 2019-04-03 21:45 | DI.RAD_ITS ---
EXAM: XR PORTABLE CHEST AP CLINICAL HISTORY: NG tube placement TECHNIQUE: COMPARISON: LEFT SHOULDER COMPLETE from 11/09/2016 FINDINGS: The heart is not enlarged. Note is again made of proximal aortic graft. The lungs are clear and wel l expanded. There is an NG tube which extends through the region of the gastric fundus. The tip of the tube is not included on the inferior aspect of the film but presumably lies in the stomach or bey ond. IMPRESSION:
[2019-04-03 21:55] LABS: Platelet Count 54 x1000/uL (130-400)
[2019-04-03 21:58] LABS: ALT 27 U/L (16-63); AST 40 U/L (15-37); Albumin 2.9 g/dL (3.4-5.0); Alkaline Phosphatase 149 U/L (46-116); Anion Gap 10.6 mmol/L (3-11); BUN 45 mg/dL (7-18); Bilirubin, Total 0.5 mg/dL (0.2-1.0); CO2 23.4 mmol/L (21.0-32.0); CREATININE 1.27 mg/dL (0.70-1.30); Calcium 8.2 mg/dL (8.5-10.1); Chloride 105 mmol/L (98-107); Estimated GFR 57.28 (mL/min/1.73m2); Glucose 139 mg/dL (74-106); Lipase 383 U/L (73-393); Magnesium 1.9 mg/dL (1.8-2.4); Potassium 4.9 mmol/L (3.5-5.1); Sodium 139 mmol/L (136-145); Total Protein 5.7 g/dL (6.4-8.2)
[2019-04-03] MEDS: Pantoprazole 40 MG VIAL 80 MG IVP (22:01)
--- NOTE | 2019-04-03 22:17 | DI.VRAD_ITS ---
PROCEDURE INFORMATION: Exam: XR Chest, 1 View Exam date and time: 04/03/2019 10:01 PM Age: 64 years old Clinical indication: Other: Ngt placement TECHNIQUE: Imaging protocol: XR of the chest Views: 1 view. COMPARISON: CR CHEST 2 VIEWS PA,LAT 07/27/2016 8:59 PM FINDINGS: Lungs: NG tube tip extends below level of film. No acute pulmonary infiltrate. No consolidation. Pleural space: Unremarkable. No pleural effusion. No pneumothorax. Heart/Mediastinum: Unremarkable. No cardiomegaly. Bones/joints: Unremarkable. IMPRESSION: No acute findings. Dictated and Authenticated by: Bucky Tamayo MD. Ordering:SARAH Lawler MD
[2019-04-03 22:23] LABS: ETHANOL BLOOD < 3.0 mg/dL (<3)
[2019-04-03] MEDS: CIPROFLOXACIN 400 MG/200 ML BAG 200 MG IVPB (22:37)
[2019-04-03 22:40] VITALS: BP 102/66; PULSE 65; RESP 15; TEMP 36.9; O2SAT 96
--- NOTE | 2019-04-03 22:44 | NUR.NOTE ---
Nursing Note: Pt has vomited a total 800 ml bright red blood. #12 NGT placed right nares with bright red blood return. VS remain stable. Uncrossed unit infusing well. Pt has 4 IVs #22 right forearm; #18 right forearm; ; #18 left forearm #20 right thumb side of hand. Pt remains stable. Pt is alert color is improved. Pt is in sinus rhythm no ectopy. Abd is distended with hypoactive bowel sounds throughout.
[2019-04-03] MEDS: PANTOPRAZOLE 80 MG in Normal Saline 100 ML 10 MG IV (22:54)
[2019-04-03 23:01] VITALS: BP 110/63; PULSE 67; RESP 20; TEMP 36.8; O2SAT 98
--- NOTE | 2019-04-03 23:02 | NUR.NOTE ---
u2ed unit of blood administerded at 2300 TAR would not accept the information because of a time constraintNursing Note:
[2019-04-03 23:07] VITALS: BP 110/63; PULSE 61; RESP 15; O2SAT 97
--- NOTE | 2019-04-03 23:58 | NUR.NOTE ---
Nursing Note: 2nd unit of PRBC (crossmatched) is completed just prior to pt flight to [facility].
[2019-04-03 23:59] VITALS: BP 106/58; PULSE 65; RESP 15; TEMP 36.9; O2SAT 98
== END 2019-04-03 23:50 | disposition short-term general hospital (02) ==
PROVIDERS: Emergency Provider Emergency Medicine; PCP Family Medicine
DX: K92.0 Hematemesis (principal); K92.2 Gastrointestinal hemorrhage, unspecified; I85.00 Esophageal varices without bleeding; I10 Essential (primary) hypertension; E11.9 Type 2 diabetes mellitus without complications
CPT/HCPCS: 36415; 36430; 80053; 82805; 83690; 86850; 86900; 86901; 86920; 96365; 96366; 96368; 96375; 99291; 71045; 80320; 82248; 83605; 83735; 85025; 85610; 85730; J0696; J0744; J2354; J2405; P9016

== ENCOUNTER 2019-04-09 01:53 | Outpatient (CLI) | payer MEDICARE, OTHER, SELFPAY ==
[2019-04-09 13:47] LABS: Anion Gap 10.5 mmol/L (3-11); BUN 30 mg/dL (7-18); CO2 23.5 mmol/L (21.0-32.0); CREATININE 1.33 mg/dL (0.70-1.30); Calcium 8.2 mg/dL (8.5-10.1); Chloride 103 mmol/L (98-107); Estimated GFR 54.31 (mL/min/1.73m2); Glucose 157 mg/dL (74-106); Potassium 3.7 mmol/L (3.5-5.1); Sodium 137 mmol/L (136-145)
[2019-04-09 13:54] LABS: HCT 23.5 % (40.0-50.0); HGB 7.5 g/dL (13.5-17.5); Mean Corp. HGB Concentration 31.9 g/dL (32.0-36.0); Mean Corpuscular Hemoglobin 27.5 pg (27.0-33.0); Mean Corpuscular Volume 86.1 fL (80-95); Mean Platelet Volume 10.9 fL (8.0-11.0); RBC 2.73 m/cumm (4.50-6.00); White Blood Cell Count 2.93 k/cumm (4.4-10.8)
[2019-04-09 14:23] LABS: Platelet Count 45 x1000/uL (130-400)
== END 2019-04-09 02:13 ==
PROVIDERS: PCP Family Medicine; Visit Provider Family Medicine
DX: I10 Essential (primary) hypertension (principal); I25.10 Atherosclerotic heart disease of native coronary artery without angina pectoris
CPT/HCPCS: 36415; 80048; 85027

== ENCOUNTER 2019-04-15 07:11 | Outpatient (CLI) | payer MEDICARE, OTHER, SELFPAY ==
[2019-04-15 08:53] LABS: Anion Gap 7.3 mmol/L (3-11); BUN 33 mg/dL (7-18); CO2 25.7 mmol/L (21.0-32.0); CREATININE 1.37 mg/dL (0.70-1.30); Calcium 8.1 mg/dL (8.5-10.1); Chloride 105 mmol/L (98-107); Estimated GFR 52.48 (mL/min/1.73m2); Glucose 106 mg/dL (74-106); Potassium 4.3 mmol/L (3.5-5.1); Sodium 138 mmol/L (136-145)
== END 2019-04-15 07:31 ==
PROVIDERS: PCP Family Medicine; Visit Provider Family Medicine
DX: N17.9 Acute kidney failure, unspecified (principal)
CPT/HCPCS: 36415; 80048

== ENCOUNTER 2019-05-05 10:55 | Outpatient (CLI) | payer MEDICARE, OTHER, SELFPAY ==
[2019-05-05 13:00] LABS: HCT 27.2 % (40.0-50.0); HGB 8.3 g/dL (13.5-17.5); Mean Corp. HGB Concentration 30.5 g/dL (32.0-36.0); Mean Corpuscular Hemoglobin 24.5 pg (27.0-33.0); Mean Corpuscular Volume 80.2 fL (80-95); RBC 3.39 m/cumm (4.50-6.00); White Blood Cell Count 4.49 k/cumm (4.4-10.8)
[2019-05-05 13:49] LABS: Platelet Count 57 x1000/uL (130-400)
== END 2019-05-05 11:15 ==
PROVIDERS: PCP Family Medicine; Visit Provider Family Medicine
DX: I25.10 Atherosclerotic heart disease of native coronary artery without angina pectoris (principal)
CPT/HCPCS: 36415; 85027

== ENCOUNTER 2019-06-14 03:29 | Outpatient (CLI) | payer MEDICARE, OTHER, SELFPAY ==
[2019-06-14 11:24] LABS: Absolute Basophil Count 0.01 k/cumm (0.0-0.2); Absolute Eosinophil Count 0.07 k/cumm (0.0-0.7); Absolute Lymphocyte Count 0.29 k/cumm (1.2-3.4); Absolute Monocyte Count 0.44 k/cumm (0.11-0.7); Absolute Neutrophil Count 2.44 k/cumm (1.2-6.7); Basophils % 0.3; Eosinophils % 2.2; HCT 32.8 % (40.0-50.0); HGB 10.1 g/dL (13.5-17.5); Lymphocytes % 8.9; Mean Corp. HGB Concentration 30.8 g/dL (32.0-36.0); Mean Corpuscular Hemoglobin 25.4 pg (27.0-33.0); Mean Corpuscular Volume 82.4 fL (80-95); Monocytes % 13.5; Neutrophils % 75.1; RBC 3.98 m/cumm (4.50-6.00); RBC Distribution Width 21.3 % (11.8-14.1); White Blood Cell Count 3.25 k/cumm (4.4-10.8)
[2019-06-14 11:28] LABS: INR 1.1 (0.9-1.1); Prothrombin Time 11.2 sec (9.3-11.0)
[2019-06-14 11:30] LABS: ALT 37 U/L (16-63); AST 40 U/L (15-37); Albumin 3.1 g/dL (3.4-5.0); Alkaline Phosphatase 179 U/L (46-116); BUN 35 mg/dL (7-18); Bilirubin, Total 0.5 mg/dL (0.2-1.0); CREATININE 1.48 mg/dL (0.70-1.30); Calcium 8.5 mg/dL (8.5-10.1); Chloride 105 mmol/L (98-107); Glucose 104 mg/dL (74-106); Potassium 3.9 mmol/L (3.5-5.1); Sodium 137 mmol/L (136-145); Total Protein 6.2 g/dL (6.4-8.2)
[2019-06-14 11:37] LABS: Diff Comment Diff Reviewed; Platelet Count 42 x1000/uL (130-400)
[2019-06-14 11:38] LABS: Anisocytosis 2+
== END 2019-06-14 03:49 ==
PROVIDERS: PCP Family Medicine; Visit Provider Internal Medicine Transplant Hepatology
DX: K75.81 Nonalcoholic steatohepatitis (NASH) (principal)
CPT/HCPCS: 36415; 80053; 85025; 85610

== ENCOUNTER 2019-06-19 07:48 | Emergency (ER) | payer MEDICARE, OTHER, SELFPAY ==
[2019-06-19 07:53] VITALS: BP 141/66; PULSE 53; TEMP 36.6; O2SAT 98
--- NOTE | 2019-06-19 08:15 | W.ED.GENAD ---
Discharge Plan Disposition Patient Disposition: HOME Condition: Stable Discharge Details Chief Complaint: AnimalBite Clinical Impression: Dog bite of left hand Primary Care Provider: Raoul Akhtar ED Provider: Tadeo Hendricks Home Meds and New Rx's Prescriptions: New doxycycline hyclate 100 mg tablet 100 mg PO BID Qty: 13 RF: 0 Continued vitamin A palmitate 10,000 unit tablet 10,000 unit PO DAILY RF: 0 nitroglycerin 0.4 mg tablet, sublingual 0.4 mg Sublingual Q5M MDD 3 pills PRN (Reason: chest pain) Qty: 25 RF: 0 lorazepam 0.5 mg tablet 0.5 mg PO HS PRN RF: 0 spironolactone 100 mg tablet 100 mg PO DAILY RF: 0 aspirin [Aspirin Low-Strength] 81 MG tablet,chewable 81 mg PO NIGHTLY RF: 0 nystatin (bulk) 1 EACH powder 1 applic Topical BID PRNQty: 1 RF: 5 furosemide 20 mg tablet 40 mg PO QAM Qty: 180 RF: 3 sertraline 100 mg tablet 150 mg PO DAILY Qty: 135 RF: 3 Shingrix Adjuvant Component-PF Suspension 0.5 ml IM DAILY Qty: 0.5 RF: 1 hepatitis B virus vacc.rec(PF) 20 mcg/mL suspension 1 ml IM ONCE Qty: 1 RF: 1 Pneumovax-23 25 mcg/0.5 mL syringe 0.5 ml IM ONCE Qty: 0.5 RF: 0 lactulose 10 gram/15 mL solution 15 ml PO TID Qty: 1892 RF: 3 ergocalciferol (vitamin D2) 1,250 mcg (50,000 unit) capsule 50,000 unit PO QWEEK RF: 0 Discontinued zinc sulfate 220 (50) mg capsule 220 mg PO BID RF: 0 Discharge Instructions Instructions: Animal Bite (ED) Additional Instructions: Please take full course of antibiotic as prescribed. Your next dose is this evening. Stop taking zinc sulfate while you are on antibiotic and for a few days post completion of antibiotic therapy. Please contact your primary care physician to arrange follow-up. Return to the ER for any worsening or new concerning symptoms. Referrals: Raoul Akhtar [Primary Care Provider] - Medical Decision Making 8:28 -- 64-year-old male here with left hand erythema and edema surrounding puncture wound from dog bite 2 days ago. Suspect early cellulitis. Tetanus is up-to-date. Patient has penicillin allergy. I will start doxycycline. Patient has ynh-zvupcal-rcuyzzrdc diabetes listed in his medical history. Plan to check blood sugar. We will x-ray hand to assess for fracture or foreign body. --Blood sugar normal. X-ray of the hand was reviewed and interpreted by radiology: No fracture or foreign body. Patient was started on doxycycline. Usual and customary discharge instructions provided. HPI General Mode of arrival: ambulatory. Date/Time Provider Initiated Documentation: 06/19/19 07:49. Limitations to Documentation: no limitations. Information obtained by: patient. HPI Narrative: 64-year-old male presents with dog bite to left hand. Patient notes he was bit in his left hand by his pet dog 2 days ago. Dog shots are up-to-date. He notes increased swelling and pain dorsal hand around bite sites since yesterday. No associated fever. No numbness in his hand. Related Data Home Medications Medication Instructions Recorded Confirmed aspirin [Aspirin Low-Strength] 81 mg PO NIGHTLY tab-cap 05/13/12 06/19/19 nystatin (bulk) 1 applic TOPICAL BID PRN #1 bottle 08/31/17 06/19/19 lorazepam 0.5 mg tablet 0.5 mg PO HS PRN tab 10/18/17 06/19/19 spironolactone 100 mg tablet 100 mg PO DAILY tab 05/20/18 06/19/19 furosemide 20 mg tablet 40 mg PO QAM #180 tab 12/07/18 06/19/19 sertraline 100 mg tablet 150 mg PO DAILY #135 tab 12/07/18 06/19/19 vitamin A palmitate 10,000 unit 10,000 unit PO DAILY 12/09/18 06/19/19 tablet adjuvant AS01B (PF)vial 1 of 2 0.5 ml IM DAILY #0.5 ml 04/27/19 05/05/19 hepatitis B virus vacc.rec(PF) 20 1 ml IM ONCE #1 ml 04/27/19 05/05/19 mcg/mL intramuscular susp pneumococcal 23-batsheva ps vaccine 25 0.5 ml IM ONCE #0.5 ml 04/28/19 05/05/19 mcg/0.5 mL injection syringe lactulose 10 gram/15 mL oral 15 ml PO TID #1892 ml 04/29/19 06/19/19 solution ergocalciferol (vitamin D2) 1,250 50,000 unit PO QWEEK 05/05/19 06/19/19 mcg (50,000 unit) capsule nitroglycerin 0.4 mg sublingual 0.4 mg SUBLINGUAL Q5M PRN #25 tab 05/05/19 06/19/19 tablet MDD 3 pills doxycycline hyclate 100 mg PO BID #13 tab 06/19/19 Previous Rx's Medication Instructions Recorded furosemide 20 mg tablet 40 mg PO QAM #180 tab 12/07/18 sertraline 100 mg tablet 150 mg PO DAILY #135 tab 12/07/18 adjuvant AS01B (PF)vial 1 of 2 0.5 ml IM DAILY #0.5 ml 04/27/19 hepatitis B virus vacc.rec(PF) 20 1 ml IM ONCE #1 ml 04/27/19 mcg/mL intramuscular susp pneumococcal 23-batsheva ps vaccine 25 0.5 ml IM ONCE #0.5 ml 04/28/19 mcg/0.5 mL injection syringe lactulose 10 gram/15 mL oral 15 ml PO TID #1892 ml 04/29/19 solution nitroglycerin 0.4 mg sublingual 0.4 mg SUBLINGUAL Q5M PRN #25 tab 05/05/19 tablet MDD 3 pills doxycycline hyclate 100 mg PO BID #13 tab 06/19/19 Allergies Allergy/AdvReac Type Severity Reaction Status Date / Time Iodinated Contrast Media Allergy Severe Swelling/Ed Verified 06/19/19 07:59 [Iodinated Contrast- Oral tiffanie and IV Dye] shellfish derived Allergy Severe Swelling/Ed Verified 06/19/19 07:59 tiffanie ciprofloxacin Allergy Intermediate rash Verified 06/19/19 07:59 Penicillins Allergy Intermediate Hives Verified 06/19/19 07:59 gabapentin AdvReac Mild URINARY SX Verified 06/19/19 07:59 General Stated Complaint: AnimalBite SARAH: 4 Review of Systems Constitutional Constitutional: Reports as per HPI Musculoskeletal Musculoskeletal: Reports as per HPI Integumentary/Breasts Skin/Breast: Reports as per HPI Neurologic Neurologic: Reports as per HPI [facility] Medical History Aortic stenosis (Chronic) Ascites (Chronic) S/P 6 L PARACENTESIS Depression (Chronic) Diabetes (Chronic) History of encephalitis (Acute) HTN (hypertension) (Chronic) Hyperlipemia (Acute) Liver cirrhosis secondary to JIMENEZ (Acute) Myocardial infarction (Chronic) NAFLD (nonalcoholic fatty liver disease) (Acute) Obesity (Chronic) Obstructive sleep apnea (Chronic) Osteoarthritis (Chronic) Pancreatic lesion (Acute) 04/28/18 [facility]; 2cm PANCREATIC LESION Seizure disorder (Chronic) Thrombosed external hemorrhoid (Acute) Surgical History H/O aortic valve replacement (Acute) History of carpal tunnel release (Acute) History of coronary artery stent placement (Chronic) S/P hemorrhoidectomy (Acute 04/21/18) Dr Jenny Cedillo, [facility] S/P TAVR (transcatheter aortic valve replacement) (Acute) Status post abdominal paracentesis (Acute ~04/25/18) Social History Smoking/Tobacco Use Status: Never Alcohol Intake: former Drug use: Never Substance use type: does not use Do you feel safe at home: Yes Do you feel safe in your relationship?: Yes Exam Const General: cooperative and no acute distress HENMT Mouth: moist mucous membranes Skin Trauma: puncture (2 healing 1 cm puncture wounds dorsal left hand with surrounding erythema) Neuro General: patient alert and patient awake Sensory Exam: no sensory deficits noted (Distal left hand) Extrem Left upper extremity: hand Details: tenderness Location: of the dorsal hand and swelling Location: of the dorsal hand Location: over the 2nd metacarpal and over the 3rd metacarpal Course Vital Signs Vital signs: Vital Signs Temperature 36.6 C 06/19/19 07:53 Pulse 53 L 06/19/19 07:53 Blood Pressure 141/66 H 06/19/19 07:53 Pulse Oximetry 98 06/19/19 07:53 Temperature 36.6 C 06/19/19 07:53 Temperature Source Temporal Artery Scan 06/19/19 07:53 Pulse 53 L 06/19/19 07:53 Respiratory Effort Non-Labored 06/19/19 07:56 Blood Pressure 141/66 H 06/19/19 07:53 Blood Pressure Position Sitting 06/19/19 07:53 Pulse Oximetry 98 06/19/19 07:53 Oxygen Delivery Method Room Air 06/19/19 07:53 Oxygen Flow Rate 0 06/19/19 07:53
[2019-06-19] MEDS: Doxycycline Hyclate 100 MG CAP PO (08:29)
--- NOTE | 2019-06-19 08:40 | DI.RAD_ITS ---
EXAM: XR HAND LT COMPLETE CLINICAL HISTORY: dog bite dorsal TECHNIQUE: COMPARISON: No exams were available for comparison FINDINGS: Three views were obtained. There are tiny radiodensities projected over the region of the 3rd MCP maine int dorsally, small foreign bodies not excluded, please correlate clinically. There also appears to be soft tissue swelling in this area consistent with the history of dog bite No underlying fracture identified. IMPRESSION:
--- NOTE | 2019-06-19 08:52 | DI.VRAD_ITS ---
PROCEDURE INFORMATION: Exam: XR Left Hand Exam date and time: 06/19/2019 8:37 AM Age: 64 years old Clinical indication: Other: Dog bite dorsal TECHNIQUE: Imaging protocol: XR Left hand. Views: 3 or more views. COMPARISON: No relevant prior studies available. FINDINGS: Bones/joints: 2.1 mm metallic density adjacent to the ring finger metacarpal phalangeal joint. There is no evidence of acute fracture.There is no evidence of malalignment or dislocation. Unhealed avulsion fracture adjacent to the distal ulna Soft tissues: Atherosclerosis in the radial artery IMPRESSION: There is no evidence of acute fracture.There is no evidence of malalignment or dislocation. Dictated and Authenticated by: Omari Sotelo MD. Ordering:ITZ Piedra MD
== END 2019-06-19 09:03 | disposition home or self-care (01) ==
PROVIDERS: Emergency Provider Student in an Organized Health Care Education/Training Program; PCP Family Medicine
DX: S61.452A Open bite of left hand, initial encounter (principal); W54.0XXA Bitten by dog, initial encounter; E11.9 Type 2 diabetes mellitus without complications
CPT/HCPCS: 36416; 82962; 99283; 73130

== ENCOUNTER 2019-08-30 02:25 | Outpatient (CLI) | payer MEDICARE, OTHER, SELFPAY ==
[2019-08-30 10:33] LABS: Absolute Eosinophil Count 0.08 k/cumm (0.0-0.7); Absolute Lymphocyte Count 0.27 k/cumm (1.2-3.4); Absolute Monocyte Count 0.35 k/cumm (0.11-0.7); Absolute Neutrophil Count 2.48 k/cumm (1.2-6.7); Eosinophils % 2.5; HCT 32.5 % (40.0-50.0); HGB 10.5 g/dL (13.5-17.5); Lymphocytes % 8.5; Mean Corp. HGB Concentration 32.3 g/dL (32.0-36.0); Mean Corpuscular Volume 86.7 fL (80-95); RBC 3.75 m/cumm (4.50-6.00); RBC Distribution Width 16.5 % (11.8-14.1); White Blood Cell Count 3.18 k/cumm (4.4-10.8)
[2019-08-30 10:47] LABS: Platelet Count 41 x1000/uL (130-400)
[2019-08-30 10:56] LABS: ALT 29 U/L (16-63); AST 39 U/L (15-37); Albumin 3.3 g/dL (3.4-5.0); Alkaline Phosphatase 171 U/L (46-116); Anion Gap 8.7 mmol/L (3-11); BUN 36 mg/dL (7-18); Bilirubin, Total 0.7 mg/dL (0.2-1.0); CO2 24.3 mmol/L (21.0-32.0); CREATININE 1.24 mg/dL (0.70-1.30); Calcium 8.5 mg/dL (8.5-10.1); Chloride 105 mmol/L (98-107); Estimated GFR 58.88 (mL/min/1.73m2); Glucose 100 mg/dL (74-106); Potassium 3.8 mmol/L (3.5-5.1); Sodium 138 mmol/L (136-145); Total Protein 6.2 g/dL (6.4-8.2)
[2019-08-30 10:57] LABS: INR 1.1 (0.9-1.1); Prothrombin Time 11.2 sec (9.3-11.0)
[2019-09-01 08:12] LABS: AFP Tumor Marker <2.5 ng/mL (<8.1)
== END 2019-08-30 02:45 ==
PROVIDERS: PCP Family Medicine; Visit Provider Internal Medicine Transplant Hepatology
DX: K75.81 Nonalcoholic steatohepatitis (NASH) (principal); K74.69 Other cirrhosis of liver
CPT/HCPCS: 36415; 80053; 82105; 85025; 85610

== ENCOUNTER 2019-08-30 07:18 | Outpatient (CLI) | payer MEDICARE, OTHER, SELFPAY ==
[2019-09-01 17:24] LABS: COVID-19 RT-PCR Result NEGATIVE (Negative)
== END 2019-08-30 07:38 ==
PROVIDERS: PCP Family Medicine; Visit Provider Family Medicine
DX: Z03.818 Encounter for observation for suspected exposure to other biological agents ruled out (principal); K75.81 Nonalcoholic steatohepatitis (NASH); K74.69 Other cirrhosis of liver
CPT/HCPCS: 36415; 80053; U0003; 82105; 85025; 85610

== ENCOUNTER 2019-11-01 01:14 | Outpatient (CLI) | payer MEDICARE, OTHER, SELFPAY ==
--- NOTE | 2019-11-01 06:30 | DI.RAD_ITS ---
EXAM: XR LUMBAR SPINE COMPLETE CLINICAL HISTORY: back pain,DORSALGIA,M54.9. TECHNIQUE: 2D digital imaging was performed. COMPARISON: CR LUMBAR SPINE COMPLETE from 11/30/2012 FINDINGS: BONES: There is a compression deformity of the L5 vertebral body. There is mild loss of the height o f the vertebral body. The acuity is indeterminate. Degenerative changes are seen throughout the spi ne characterized by endplate osteophytes. There are degenerative changes of the facets from L3-4 thr ough L5-S1. Vertebral bodies are unremarkable. No facet hypertrophy identified. DISKS: Intervertebral disc spaces are maintained. ALIGNMENT: Mild anterolisthesis of L4 on L5. This is likely degenerative in nature. SOFT TISSUE: Vascular calcifications are seen. IMPRESSION: 1. Mild compression deformity of the L5 vertebral body of indeterminate age. 2. Degenerative changes in the lumbar spine. DATA REPOSITORY: RADIATION DOSE DELIVERED:
== END 2019-11-01 01:34 ==
PROVIDERS: PCP Family Medicine; Visit Provider Nurse Practitioner Family
DX: S32.050A Wedge compression fracture of fifth lumbar vertebra, initial encounter for closed fracture (principal); M54.9 Dorsalgia, unspecified; M47.816 Spondylosis without myelopathy or radiculopathy, lumbar region
CPT/HCPCS: 72110

== ENCOUNTER 2019-12-03 15:47 | Outpatient (REF) | payer MEDICARE, OTHER, SELFPAY ==
[2019-12-03 20:49] LABS: HCT 26.1 % (40.0-50.0); HGB 8.5 g/dL (13.5-17.5); MCH 28.4 pg (27.0-33.0); MCHC 32.6 % (32.0-36.0); MCV 87.3 fL (80-95); MPV 12.1 fL (8.0-11.0); RBC 2.99 10^6/uL (4.36-5.78); RDW 16.1 % (11.8-14.1); RDW-SD 50.5 fL; WBC 7.81 10^3/uL (4.4-10.8)
[2019-12-03 21:10] LABS: Platelet Count 41 10^3/uL (130-400)
[2019-12-03 21:55] LABS: Magnesium 2.2 mg/dL (1.8-2.4)
== END 2019-12-03 16:07 ==
LOC: LBN 15:47
PROVIDERS: PCP Family Medicine; Visit Provider Nurse Practitioner Family
DX: I25.10 Atherosclerotic heart disease of native coronary artery without angina pectoris (principal); E83.42 Hypomagnesemia
CPT/HCPCS: 85027; 83735

== ENCOUNTER 2019-12-08 02:43 | Outpatient (CLI) | payer MEDICARE, OTHER, SELFPAY ==
--- NOTE | 2019-12-08 07:45 | DI.US_ITS ---
EXAM: US SOFT TISSUE EXTREMITY CLINICAL HISTORY: Mass to right lateral foot,GANGLION CYST,M67.49,M67.89,M71.39 TECHNIQUE: Ultrasound performed using standard protocol. COMPARISON: No exams were available for comparison FINDINGS: Soft tissue ultrasound was performed of the dorsum of the right foot. The patient reports recent in jury to this area. There is edema of the soft tissues of the dorsum of foot. Possible small hematom a, no cyst or vascular mass seen. IMPRESSION: Indeterminate findings, no gross ganglion cyst seen. Considering the patient's history of injury add itional evaluation with radiographs of the foot may be considered. If there is a persistent clinical question of a foot mass MRI would be recommended. DATA REPOSITORY:
== END 2019-12-08 03:03 ==
PROVIDERS: PCP Family Medicine; Visit Provider Nurse Practitioner Family
DX: R60.0 Localized edema (principal)
CPT/HCPCS: 76881

== ENCOUNTER 2019-12-13 16:48 | Outpatient (CLI) | payer MEDICARE, OTHER, SELFPAY ==
--- NOTE | 2019-12-13 07:30 | DI.RAD_ITS ---
EXAM: XR FOOT RT COMPLETE CLINICAL HISTORY: mass on right foot,. TECHNIQUE: 2D digital imaging was performed. COMPARISON: No exams were available for comparison FINDINGS: BONES: No acute fracture is present. No bony destructive lesion is seen. No erosive changes are seen . No findings to suggest osteomyelitis. There is an enthesophyte at the Achilles insertion site. JOINTS: No dislocation present. Mild degenerative changes are seen at the 1st MTP joint. SOFT TISSUE: Vascular calcifications are seen in the soft tissues. IMPRESSION: No radiographic evidence to suggest acute osteomyelitis. Degenerative changes in the foot. Atherosc lerosis. DATA REPOSITORY: RADIATION DOSE DELIVERED:
== END 2019-12-13 17:08 ==
PROVIDERS: PCP Family Medicine; Visit Provider Nurse Practitioner Family
DX: M19.071 Primary osteoarthritis, right ankle and foot (principal)
CPT/HCPCS: 73630